=== PATIENT | female | born 1965 | race Caucasian/White ===

== ENCOUNTER 2017-04-12 22:16 | Emergency (ER) | payer OTHER ==
[~2017-04-12] VITALS: Ht 157.5 cm; Wt 67.1 kg
--- OUTSIDE RECORDS SUMMARY | ~2017-04-12 | XMS ---
Demographics + + + | Address | [address] | | | [place] [address] | + + + | Preferred Language | Unknown | + + + | Marital Status | Unknown | + + + | Mandaeism Affiliation | Unknown | + + + | Race | Unknown | + + + | Ethnic Group | Unknown | + + + Author + + + | Author | [facility] | + + + | Organization | [facility] | + + + | Address | [address] | | | [place] [address] | + + + | Phone | | + + + Care Team Providers + + + + | Care Trim Operator Name | Role | Phone | + + + + Unavailable | Unavailable | + + + + PROBLEMS + + + + + + + + | Type | Condition | ICD9-CM | [id number] | Onset | Condition | SNOMED | | | | Code | Code | Dates | Status | Code | + + + + + + + + | Problem | History of | Z87.898 | | | Active | | | | chest | | | | | | | | pain | | | | | | + + + + + + + + | Problem | Hyperlipid | | E78.5 | | Active | 03653276 | | | emia | | | | | | + + + + + + + + | Problem | Hypotensio | | I95.9 | | Active | 82439104 | | | n | | | | | | + + + + + + + + | Assessment | URI (upper | | J06.9 | Dec, | Active | [id number] | | | | | | 2017 | | | | | respirator | | | | | | | | y | | | | | | | | infection) | | | | | | + + + + + + + + | Problem | Internal | K64.8 | | | Active | 48366958 | | | hemorrhoid | | | | | | + + + + + + + + | Problem | Colitis | 009.1 | | | Active | 31831215 | | | NOS | | | | | | + + + + + + + + | Problem | Constipati | K59.01 | | | Active | 79402079 | | | on by | | | | | | | | delayed | | | | | | | | colonic | | | | | | | | transit | | | | | | + + + + + + + + | Problem | Insomnia | | G47.00 | | Active | 085388310 | + + + + + + + + | Problem | Constipati | K59.02 | | | Active | 35624656 | | | on by | | | | | | | | outlet | | | | | | | | dysfunctio | | | | | | | | n | | | | | | + + + + + + + + | Problem | Well woman | Z01.419 | | | Active | 605369465 | | | exam | | | | | | + + + + + + + + | Problem | Screening | Z12.39 | | | Active | 98161621 | | | breast | | | | | | | | examinatio | | | | | | | | n | | | | | | + + + + + + + + | Problem | Palpitatio | | R00.2 | | Active | 89247616 | | | n | | | | | | + + + + + + + + | Problem | Chronic | K59.09 | | | Active | 562412193 | | | constipati | | | | | | | | on | | | | | | + + + + + + + + ALLERGIES + + + + +--------+ | Substance | Reaction | Event Type | Date | Status | + + + + +--------+ | Morphine | Unknown | Drug Allergy | Dec, | Active | + + + + +--------+ SOCIAL HISTORY No smoking Hx information available PLAN OF CARE VITAL SIGNS + + + + | Height | 62 in | 2017-01-24 | + + + + | Weight | 146.2 lbs | 2017-01-24 | + + + + | BMI | 26.74 kg/m2 | 2017-01-24 | + + + + | Temperature | 99.3 degrees Fahrenheit | 2017-01-24 | + + + + | Heart Rate | 109 /min | 2017-01-24 | + + + + | Blood pressure systolic | 124 mm Hg | 2017-01-24 | + + + + | Blood pressure diastolic | 79 mm Hg | 2017-01-24 | + + + + MEDICATIONS + [...] + + + + + +--------+ RESULTS No Results PROCEDURES + + + + + | Procedure | Date Ordered | Related Diagnosis | Body Site | + + + + + | Est Level III | January 24, 2017 | | | | Intermediate | | | | + + + + + | DSCHRG MED/CURRENT | January 24, 2017 | | | | MED MERGE | | | | + + + + + | DOC MEDS VERIFIED | January 24, 2017 | | | | W/PT OR RE | | | | + + + + + IMMUNIZATIONS No Known Immunizations"
--- OUTSIDE RECORDS SUMMARY | ~2017-04-12 | XMS ---
Demographics + + + | Address | [address] | | | [place] [address] | + + + | Preferred Language | Unknown | + + + | Marital Status | Unknown | + + + | Latter-Day Affiliation | Unknown | + + + | Race | Unknown | + + + | Ethnic Group | Unknown | + + + Author + + + | Author | [facility] | + + + | Organization | [facility] | + + + | Address | [address] | | | [place] [address] | + + + | Phone | | + + + Care Team Providers + + + + | Care Steam Engineer Name | Role | Phone | + + + + Unavailable | Unavailable | + + + + PROBLEMS +---------+ + + +--------+ + + | Type | Condition | ICD9-CM | [id number] | Onset | Condition | SNOMED | [...] | | E78.5 | | Active | 85944758 | | | emia | | | | | | +---------+ + + +--------+ + + | Problem | Hypotensio | | I95.9 | | Active | 39669732 | | | n | | | | | | +---------+ + + +--------+ + + | Problem | Internal | K64.8 | | | Active | 63852916 | | | hemorrhoid | | | | | | +---------+ + + +--------+ + + | Problem | Colitis | 009.1 | | | Active | 65563560 | | | NOS | | | | | | +---------+ + + +--------+ + + | Problem | Constipati | K59.01 | | | Active | 68691258 | | | on by | | | | | | | | delayed | | | | | | | | colonic | | | | | | | | transit | | | | | | +---------+ + + +--------+ + + | Problem | Insomnia | | G47.00 | | Active | 086097526 | +---------+ + + +--------+ + + | Problem | Constipati | K59.02 | | | Active | 98638338 | | | on by | | | | | | | | outlet | | | | | | | | dysfunctio | | | | | | | | n | | | | | | +---------+ + + +--------+ + + | Problem | Well woman | Z01.419 | | | Active | [id number] | | | exam | | | | | | +---------+ + + +--------+ + + | Problem | Screening | Z12.39 | | | Active | 04240269 | | | breast | | | | | | | | examinatio | | | | | | | | n | | | | | | +---------+ + + +--------+ + + | Problem | Palpitatio | | R00.2 | | Active | 61294299 | | | n | | | | | | +---------+ + + +--------+ + + | Problem | Chronic | K59.09 | | | Active | 893016879 | | | constipati | | | | | | | | on | | | | | | +---------+ + + +--------+ + + ALLERGIES Unknown Allergies SOCIAL HISTORY No smoking Hx information available PLAN OF CARE VITAL SIGNS MEDICATIONS Unknown Medications RESULTS No Results PROCEDURES No Known procedures IMMUNIZATIONS No Known Immunizations"
[~2017-04-12 22:16] MED LIST: AMITIZA8 MCG PO; ANTACID200 MG PO; BACTRIM DS TAB1 EACH PO; BENTYL10 MG PO; DILAUDID2 MG PO; FAMOTIDINE40 MG PO; FLAGYL500 MG PO; IBUPROFEN800 MG PO; INDOMETHACIN50 MG PO; LINZESS145 MCG PO; PROBIOTIC1 EAC1 PO; PROMETHAZINE HC25 M1 PO; TRAMADOL HCL50 MG PO; TRAZODONE HCL100 MG PO; ULTRAM50 MG PO; ZOFRAN ODT4 MG PO; ZOFRAN ODT4 MG SL; ZOFRAN ODT8 MG PO; ZOFRAN4 MG PO
[2017-04-12] MEDS ORDERED: ZOFRAN ODT4 MG PO (22:23)
[2017-04-12] MEDS ORDERED: IBUPROFEN800 MG PO (22:24)
[2017-04-13] MEDS ORDERED: ZOFRAN ODT4 MG PO (00:34)
[2017-04-13] MEDS ORDERED: TRAMADOL HCL50 MG PO (00:34)
== END 2017-04-13 00:53 | disposition home or self-care (01) ==
LOC: ED 22:16
DX: R10.9 Unspecified abdominal pain (principal); G89.29 Other chronic pain; F17.200 Nicotine dependence, unspecified, uncomplicated; Z90.710 Acquired absence of both cervix and uterus; Z90.49 Acquired absence of other specified parts of digestive tract; Z98.51 Tubal ligation status; Z88.5 Allergy status to narcotic agent; Z79.899 Other long term (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
CPT/HCPCS: 80053; 81001; 83690; 84484; 85025; 85610; 85730; 96361; 96374; 96375; 96376; 99283; J1885; J2405; J2765; J7030

== ENCOUNTER 2017-06-27 16:58 | Emergency (ER) | payer OTHER ==
[~2017-06-27] VITALS: Ht 157.5 cm; Wt 63.5 kg
--- OUTSIDE RECORDS SUMMARY | 2017-06-27 18:37 | XMS ---
Demographics + + + | Address | [address] | | | [place] [address] | + + + | Preferred Language | Unknown | + + + | Marital Status | Unknown | + + + | Church Affiliation | Unknown | + + + | Race | Unknown | + + + | Ethnic Group | Unknown | + + + Author + + + | Author | [facility] | + + + | Organization | [facility] | + + + | Address | [address] | | | [place] [address] | + + + | Phone | | + + + Care Team Providers + + + + | Care Devulcanizer Charger Name | Role | Phone | + + + + Unavailable | Unavailable | + + + + PROBLEMS +---------+ + + +--------+ + + | Type | Condition | ICD9-CM | EUU79-RR | Onset | Condition | SNOMED | | | | Code | Code | Dates | Status | Code | +---------+ + + +--------+ + + | Problem | History of | Z87.898 | | | Active | | | | chest | | | | | | | | pain | | | | | | +---------+ + + +--------+ + + | Problem | Hyperlipid | | E78.5 | | Active | 42147794 | | | emia | | | | | | +---------+ + + +--------+ + + | Problem | Hypotensio | | I95.9 | | Active | 56560425 | | | n | | | | | | +---------+ + + +--------+ + + | Problem | Internal | K64.8 | | | Active | 99223317 | | | hemorrhoid | | | | | | +---------+ + + +--------+ + + | Problem | Colitis | 009.1 | | | Active | 46795834 | | | NOS | | | | | | +---------+ + + +--------+ + + | Problem | Constipati | K59.01 | | | Active | 00867100 | | | on by | | | | | | | | delayed | | | | | | | | colonic | | | | | | | | transit | | | | | | +---------+ + + +--------+ + + | Problem | Insomnia | | G47.00 | | Active | 145729585 | +---------+ + + +--------+ + + | Problem | Constipati | K59.02 | | | Active | 95014089 | | | on by | | | | | | | | outlet | | | | | | | | dysfunctio | | | | | | | | n | | | | | | +---------+ + + +--------+ + + | Problem | Well woman | Z01.419 | | | Active | 389420535 | | | exam | | | | | | +---------+ + + +--------+ + + | Problem | Screening | Z12.39 | | | Active | 86706375 | | | breast | | | | | | | | examinatio | | | | | | | | n | | | | | | +---------+ + + +--------+ + + | Problem | Palpitatio | | R00.2 | | Active | 54558275 | | | n | | | | | | +---------+ + + +--------+ + + | Problem | Chronic | K59.09 | | | Active | 731770841 | | | constipati | | | | | | | | on | | | | | | +---------+ + + +--------+ + + ALLERGIES + + + + +--------+ | Substance | Reaction | Event Type | Date | Status | + + + + +--------+ | Morphine | Unknown | Drug Allergy | Feb, | Active | + + + + +--------+ SOCIAL HISTORY No smoking Hx information available PLAN OF CARE + +---------+ | Activity | Details | + +---------+ +---+ | | +---+ + + + | Follow Up | as scheduled with PCP Reason:null | + + + | Pending Test | Stool-C Difficile Toxin | + + + | Pending Test | Fecal Occult Blood | + + + | Pending Test | Helicobacter pylori Antigen, Stool | + + + | Pending Test | Stool Culture C-S,C Diff, GRE[employer]ER | + + + VITAL SIGNS + + + + | Height | 62 in | 2017-03-27 | + + + + | Weight | 148.2 lbs | 2017-03-27 | + + + + | BMI | 27.10 kg/m2 | 2017-03-27 | + + + + | Temperature | 98.3 degrees Fahrenheit | 2017-03-27 | + + + + | Heart Rate | 85 /min | 2017-03-27 | + + + + | Blood pressure systolic | 119 mm Hg | 2017-03-27 | + + + + | Blood pressure diastolic | 77 mm Hg | 2017-03-27 | + + + + MEDICATIONS + + + + + + + +--------+ | Medicati | Instruct | Dosage | Frequenc | Start | End Date | Duration | Status | | on | ions | | y | Date | | | | + + + + + + + +--------+ | Zofran 4 | Orally | 1 tablet | | | | | Active | | MG | prn | | | | | | | + + + + + + + +--------+ | Linzess | Orally | 1 cap(s) | 24h | 27 Sep, | | | Active | | 145 MG | daily | | | 2016 | | | | + + + + + + + +--------+ RESULTS + +--------+------+ + | Name | Result | Date | Reference Range | + +--------+------+ + | Urinalysis, Dip | | | | | (IH) | | | | + +--------+------+ + | Specific [place] | 1.025 | | | + +--------+------+ + | pH | 5 | | | + +--------+------+ + | Leukocytes | neg | | | + +--------+------+ + | Nitrite, Urine | neg | | | + +--------+------+ + | Protein | neg | | | + +--------+------+ + | Glucose | norm | | | + +--------+------+ + | Ketones | neg | | | + +--------+------+ + | Urobilingen, | norm | | | | Semi-Qn | | | | + +--------+------+ + | Bilirubin | neg | | | + +--------+------+ + | Blood Hemoglobin | neg | | | | (BLD) | | | | + +--------+------+ + | Urinalysis, HCG | | | | | (IH) | | | | + +--------+------+ + | Stool Culture -O&P | | | | + +--------+------+ + | Comprehensive | | | | | Metabolic Panel | | | | + +--------+------+ + | CBC | | | | + +--------+------+ + | WBC | | | | + +--------+------+ + | RBC | | | | + +--------+------+ + | HEMOGLOBIN | | | | + +--------+------+ + | HEMATOCRIT | | | | + +--------+------+ + | MCV | | | | + +--------+------+ + | MCH | | | | + +--------+------+ + | MCHC | | | | + +--------+------+ + | RDW | | | | + +--------+------+ + | LYMPHOCYTES | | | | + +--------+------+ + | NEUTROPHILS | | | | + +--------+------+ + | BANDS | | | | + +--------+------+ + | MONOCYTES | | | | + +--------+------+ + | EOSINOPHILS | | | | + +--------+------+ + | BASOPHILS | | | | + +--------+------+ + | OTHER | | | | + +--------+------+ + | PLATELET COUNT | | | | + +--------+------+ + PROCEDURES + + + + + | Procedure | Date Ordered | Related Diagnosis | Body Site | + + + + + | Est Level III | March 27, 2017 | | | | Intermediate | | | | + + + + + | LAB URINALYSIS (DIP | March 27, 2017 | | | | STICK ONLY | | | | + + + + + IMMUNIZATIONS No Known Immunizations"
--- OUTSIDE RECORDS SUMMARY | 2017-06-27 18:37 | XMS ---
Demographics + + + | Address | [address] | | | [place] [address] | + + + | Preferred Language | Unknown | + + + | Marital Status | Unknown | + + + | Cheondoism Affiliation | Unknown | + + + | Race | Unknown | + + + | Ethnic Group | Unknown | + + + Author + + + | Author | [facility] | + + + | Organization | [facility] | + + + | Address | [address] | | | [place] [address] | + + + | Phone | | + + + Care Team Providers + + + + | Care Veterinary Bacteriologist Name | Role | Phone | + + + + Unavailable | Unavailable | + + + + PROBLEMS +---------+ + + +--------+ + + | Type | Condition | ICD9-CM | EIB13-[id number] | Onset | Condition | SNOMED | | | | Code | Code | Dates | Status | Code | +---------+ + + +--------+ + + | Problem | Hypotensio | | I95.9 | | Active | 91206654 | | | n | | | | | | +---------+ + + +--------+ + + | Problem | Screening | Z12.39 | | | Active | 66766376 | | | breast | | | | | | | | examinatio | | | | | | | | n | | | | | | +---------+ + + +--------+ + + | Problem | Hyperlipid | | E78.5 | | Active | 52393971 | | | emia | | | | | | +---------+ + + +--------+ + + | Problem | Internal | K64.8 | | | Active | 13285461 | | | hemorrhoid | | | | | | +---------+ + + +--------+ + + | Problem | Colitis | 009.1 | | | Active | 82709454 | | | NOS | | | | | | +---------+ + + +--------+ + + | Problem | Constipati | K59.01 | | | Active | 08832085 | | | on by | | [...] + + | Problem | Chronic | K52.9 | | | Active | 77862060 | | | colitis | | | | | | +---------+ + + +--------+ + + | Problem | Insomnia | | G47.00 | | Active | 197915271 | +---------+ + + +--------+ + + | Problem | Chronic | K59.09 | | | Active | 738559052 | | | constipati | | | | | | | | on | | | | | | +---------+ + + +--------+ + + | Problem | Well woman | Z01.419 | | | Active | 765064927 | | | exam | | | | | | +---------+ + + +--------+ + + | Problem | Constipati | K59.02 | | | Active | 26129442 | | | on by | | | | | | | | outlet | | | | | | | | dysfunctio | | | | | | | | n | | | | | | +---------+ + + +--------+ + + | Problem | Palpitatio | | R00.2 | | Active | 18292331 | | | n | | | | | | +---------+ + + +--------+ + + ALLERGIES No Information SOCIAL HISTORY Never Assessed PLAN OF CARE VITAL SIGNS MEDICATIONS Unknown Medications RESULTS No Results PROCEDURES No Known procedures IMMUNIZATIONS No Known Immunizations MEDICAL (GENERAL) HISTORY + + + + | Type | Description | Date | + + + + | Medical History | Colitis 05/25/11 | | + + + + | Medical History | | | + + + + | Medical History | Constipation | | + + + + | Medical History | 7-day Holter monitor done | | | | on 02/23/16--Sinus | | | | Arrhythmia. NO PACs or | | | | PVCs. Highest rate was 158 | | | | which "could have been from | | | | activity". | | + + + + | Surgical History | Hysterectomy with BSO | 2002 | | | secondary to cervical | | | | cancer | | + + + + | Surgical History | Tonsillectomy | | + + + + | Surgical History | Tubal ligation | | + + + + | Surgical History | Cholecystectomy Dr Guerrero | 2009 | + + + + | Surgical History | Laperotomy and lysis of | 05/05/11 | | | adhesions Dr Masoner | | + + + + | Surgical History | Appendectomy | 05/05/11 | + + + + | Hospitalization History | surgery | | + + + + | Hospitalization History | childbirth x 3 | | + + + + | Hospitalization History | [facility] s/p laparotomy | 05/05/11 | + + + + | Hospitalization History | [facility] dx: colitis | 05/25-27/08 | + + + + | Hospitalization History | colonoscopy Dr Tena | 2006 | + + + + | Hospitalization History | [facility] dx: colitis | 05/25-05/27/11 | + + + +
== END 2017-06-27 20:01 | disposition left against medical advice (07) ==
LOC: ED 16:58
DX: Z53.21 Procedure and treatment not carried out due to patient leaving prior to being seen by health care provider (principal)

== ENCOUNTER 2017-09-02 13:05 | Emergency (ER) | payer OTHER ==
[~2017-09-02] VITALS: Ht 157.5 cm; Wt 63.5 kg
[2017-09-02] MEDS ORDERED: DICYCLOMINE HCL10 MG PO (13:24)
[2017-09-02] MEDS ORDERED: ULTRAM50 MG PO (13:25)
[2017-09-02] MEDS ORDERED: IBUPROFEN800 MG PO (13:26)
[2017-09-02] MEDS ORDERED: ZOFRAN ODT4 MG PO (13:32)
[2017-09-02] MEDS ORDERED: REGLAN10 MG PO (16:40)
--- NOTE | 2017-09-03 07:18 | EKG ---
[facility] [address] [facility] [place], [place] [address] Signed Normal sinus rhythm Normal ECG When compared with ECG of 01-JUN-2016 19:07, No significant change was found Confirmed by LYDIA QUIÑONEZ MD ([id number]) on 09/03/2017 7:17:58 AM Electronically Signed By: LYDIA QUIÑONEZ MD 09/03/17 0718 PATIENT NAME: TITI TANNER JAMES Electrocardiogram DATE OF : 69 PHYSICIAN: LYDIA QUIÑONEZ MD REPORT #: [id number] REPORT IS CONFIDENTIAL AND NOT TO BE RELEASED WITHOUT AUTHORIZATION
== END 2017-09-02 16:58 | disposition home or self-care (01) ==
LOC: ED 13:05
DX: R10.84 Generalized abdominal pain (principal); R07.89 Other chest pain; R11.10 Vomiting, unspecified; F17.200 Nicotine dependence, unspecified, uncomplicated; Z90.49 Acquired absence of other specified parts of digestive tract; Z90.710 Acquired absence of both cervix and uterus; Z98.51 Tubal ligation status; Z88.5 Allergy status to narcotic agent; Z85.42 Personal history 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us
CPT/HCPCS: 71020; 80053; 83690; 84484; 85025; 93005; 93010; 96374; 96375; 96376; 99284; J1630; J1885; J2405

== ENCOUNTER 2018-08-04 15:56 | Emergency (ER) | payer OTHER ==
[~2018-08-04] VITALS: Ht 157.5 cm; Wt 59.0 kg
[~2018-08-04 15:56] MED LIST changes: +DICYCLOMINE HCL10 MG PO; +PROTONIX40 MG PO; +REGLAN10 MG PO
--- OUTSIDE RECORDS SUMMARY | 2018-08-04 16:00 | XMS ---
PreManage Notification: TITI TANNER Security Sales Training Coordinator Events 1 event(s) in the past 18 months Most recent security events: Elopement at [facility] 06/27/2017 16:59 - Patient eloped before treatment completed. Details: [facility]BS CRITERIA MET - Group Notification - [facility] - 2 Visits in 30 Days CARE PROVIDERS Gasper Alonzo Treatment [facility] PHONE: Unknown ALEJANDRA MENA Primary Care 10/30/2016-Current PHONE: [phone] Rodriguez has no Care Guidelines for this patient. [facility] (12 MO.) [facility] TOTAL 4 NOTE: Visits indicate total known visits. ED/UCC VISIT TRACKING (12 MO.) 08/04/2018 15:56 [facility] [place] TYPE: Emergency COMPLAINT: - VOMITING BLOOD,SOB 07/13/2018 18:59 [facility] [place] TYPE: Emergency COMPLAINT: - ABD PAIN/VOMITING DIAGNOSES: - Nausea with vomiting, unspecified - Allergy status to narcotic agent status - Nicotine dependence, unspecified, uncomplicated - Other group home (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 - Functional dyspepsia 12/15/2017 06:53 [facility] TYPE: Emergency DIAGNOSES: - Chest Pain - Palpitations - CP 09/02/2017 13:05 [facility] TYPE: Emergency COMPLAINT: - ABD CHEST PAIN,NON INJURY DIAGNOSES: - Allergy status to narcotic agent status - Generalized abdominal pain - Acquired absence of other specified parts of digestive tract - 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us - Tubal ligation status - Acquired absence of both cervix and uterus - Other chest pain - Nicotine dependence, unspecified, uncomplicated - Epigastric pain - Vomiting, unspecified INPATIENT VISIT TRACKING (12 MO.) No inpatient visits to display in this time frame [id number]
== END 2018-08-04 19:26 | disposition home or self-care (01) ==
LOC: ED 15:56
DX: E86.0 Dehydration (principal); R11.10 Vomiting, unspecified; F17.200 Nicotine dependence, unspecified, uncomplicated; Z88.5 Allergy status to narcotic agent; Z79.899 Other long term (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
CPT/HCPCS: 80053; 81001; 85025; 96361; 96374; 96375; 99284; C9113; J1170; J1200; J2405; J2765; J7030; J7040

== ENCOUNTER 2018-10-27 15:55 | Emergency (ER) | payer OTHER ==
[~2018-10-27] VITALS: Ht 157.5 cm; Wt 59.0 kg
--- OUTSIDE RECORDS SUMMARY | 2018-10-27 15:58 | XMS ---
PreManage Notification: TITI TANNER Security Loans Officer Events 1 event(s) in the past 18 months Most recent security events: Elopement at [facility] 06/27/2017 16:59 - Patient eloped before treatment completed. Details: [facility] CRITERIA MET - Group Notification CARE PROVIDERS ALEJANDRA MENA Nurse Practitioner: Family 08/05/2018-Current PHONE: Unknown Gasper Alonzo MD PHONE: Unknown ALEJANDRA MENA Primary Care 10/30/2016-Current PHONE: [phone] Rodriguez has no Care Guidelines for this patient. Care History Medical/Surgical 08/05/2018 [facility] - Patient is currently established with [facility]. If patient is seen in the ED during business hours. Please contact CHWs at [facility]. Care Recommendation: This patient has had 5 or more Emergency Department visits in the last 12 months.\T\nbsp; Patient requires education on the scope and purpose of the ED as an acute care provider not a Primary Care Provider and should not be utilized for chronic conditions.\T\nbsp; These are guidelines and the provider should exercise clinical judgment when providing care. E.D. VISIT COUNT (12 MO.) 1 [facility] [address] [place], [place] [address]Sun TOTAL 5 NOTE: Visits indicate total known visits. ED/UCC VISIT TRACKING (12 MO.) 10/27/2018 15:[address] [facility] [place] TYPE: Emergency COMPLAINT: - CHEST PAIN,VOMITING 08/16/2018 18:13 [facility] [place] TYPE: Emergency COMPLAINT: - NAUSEA,VOMITING DIAGNOSES: - Nausea with vomiting, unspecified - Epigastric pain - Other director long term care (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 - Allergy status to narcotic agent status - Nicotine dependence, unspecified, uncomplicated 08/04/2018 15:[address] [facility] [place] TYPE: Emergency COMPLAINT: - VOMITING BLOOD,SOB DIAGNOSES: - Nicotine dependence, unspecified, uncomplicated - Dehydration - Vomiting, unspecified - Upper abdominal pain, unspecified - Allergy status to narcotic agent status - Other director long term care (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 07/13/2018 18:[address] [facility] [place] TYPE: Emergency COMPLAINT: - ABD PAIN/VOMITING DIAGNOSES: - Nausea with vomiting, unspecified - Allergy status to narcotic agent status - Nicotine dependence, unspecified, uncomplicated - Other penitentiary (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 - Functional dyspepsia 12/15/2017 06:[address] [facility] TYPE: Emergency DIAGNOSES: - Chest Pain - Palpitations - CP INPATIENT VISIT TRACKING (12 MO.) No inpatient visits to display in this time frame [email or web address]
[2018-10-27] MEDS ORDERED: PROTONIX40 MG PO (17:58)
--- NOTE | 2018-10-28 08:10 | EKG ---
[facility] [address] [facility] [place], [place] [address] Signed Normal sinus rhythm Normal ECG When compared with ECG of 13-JUL-2018 20:38, No significant change was found Confirmed by LYDIA QUIÑONEZ MD ([id number]) on 10/28/2018 8:09:56 AM Electronically Signed By: LYDIA QUIÑONEZ MD 10/28/18 0810 PATIENT NAME: CIROTITI JAMES Electrocardiogram DATE OF : 69 PHYSICIAN: LYDIA QUIÑONEZ MD REPORT #: [id number] REPORT IS CONFIDENTIAL AND NOT TO BE RELEASED WITHOUT AUTHORIZATION
== END 2018-10-27 18:03 | disposition home or self-care (01) ==
LOC: ED 15:55
DX: R10.13 Epigastric pain (principal); R11.2 Nausea with vomiting, unspecified; F17.200 Nicotine dependence, unspecified, uncomplicated; Z88.5 Allergy status to narcotic agent; Z85.42 Personal history 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us
CPT/HCPCS: 93005; 93010; 99284-25

== ENCOUNTER 2018-11-12 18:11 | Emergency (ER) | payer OTHER ==
[~2018-11-12] VITALS: Ht 157.5 cm; Wt 57.6 kg
--- OUTSIDE RECORDS SUMMARY | 2018-11-12 18:14 | XMS ---
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 Details: LWBS CRITERIA MET - Group Notification - [facility] - Has Care Guidelines - PDMP - [facility] - 2 Visits in 30 Days CARE PROVIDERS ALEJANDRA MENA Nurse Practitioner: Family 08/05/2018-Current PHONE: Unknown Gasper Alonzo Treatment Current PHONE: Unknown ALEJANDRA MENA Primary Care 10/30/2016-Current PHONE: [phone] Rodriguez has no Care Guidelines for this patient. Care History Medical/Surgical 08/05/2018 [facility] - Patient is currently established with [facility]. If patient is seen in the ED during business hours. Please contact CHWs at [facility]. Care Recommendation: This patient has had 5 [...] care. E.D. VISIT COUNT (12 MO.) 1 [facility] 5 [facility]. TOTAL 6 NOTE: Visits indicate total known visits. ED/UCC VISIT TRACKING (12 MO.) 11/12/2018 18:[address] [facility] [address] [facility] [place] TYPE: Emergency COMPLAINT: - VOMITING,RASH 10/27/2018 15:[address] [facility] [address] [facility] [place] TYPE: Emergency COMPLAINT: - CHEST PAIN,VOMITING DIAGNOSES: - 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us - Allergy status to narcotic agent status - Epigastric pain - Nicotine dependence, unspecified, uncomplicated - Nausea with vomiting, unspecified 08/16/2018 18:[address] [facility] [address] [facility] [place] TYPE: Emergency COMPLAINT: - NAUSEA,VOMITING DIAGNOSES: - Nausea with vomiting, unspecified - Epigastric pain - Other certified activities director (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 - Allergy status to narcotic agent status - Nicotine dependence, unspecified, uncomplicated 08/04/2018 15:[address] [facility] [address] [facility] [place] TYPE: Emergency COMPLAINT: - VOMITING BLOOD,SOB DIAGNOSES: - Nicotine dependence, unspecified, uncomplicated - Dehydration - Vomiting, unspecified - Upper abdominal pain, unspecified - Allergy status to narcotic agent status - Other certified activities director (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 [facility]2018 [facility] [place] [facility] COMPLAINT: - ABD PAIN/VOMITING DIAGNOSES: - Nausea with vomiting, unspecified - Allergy status to narcotic agent status - Nicotine dependence, unspecified, uncomplicated - Other certified activities director (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 - Functional dyspepsia 12/15/2017 06:53 [facility] TYPE: Emergency DIAGNOSES: - Chest Pain - Palpitations - CP INPATIENT VISIT TRACKING (12 MO.) No inpatient visits to display in this time frame [id number]
[2018-11-12] MEDS ORDERED: PANTOPRAZOLE SO40 MG PO (18:29)
[2018-11-12] MEDS ORDERED: ONDANSETRON ODT8 MG PO (18:30)
--- NOTE | 2018-11-13 16:59 | EKG ---
[facility] [address] [facility] [place], [place] [address] Signed Normal sinus rhythm Normal ECG When compared with ECG of 27-OCT-2018 16:09, No significant change was found Confirmed by PATIENCE SELF DO ([id number]) on 11/13/2018 4:59:36 PM Electronically Signed By: PATIENCE SELF DO 11/13/18 1659 PATIENT NAME: CIROTITI JAMES Electrocardiogram DATE OF : 69 PHYSICIAN: PATIENCE SELF DO REPORT #: [id number] REPORT IS CONFIDENTIAL AND NOT TO BE RELEASED WITHOUT AUTHORIZATION
== END 2018-11-12 21:07 | disposition home or self-care (01) ==
LOC: ED 18:11
DX: R11.2 Nausea with vomiting, unspecified (principal); Z85.42 Personal history 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us; F17.200 Nicotine dependence, unspecified, uncomplicated; Z90.710 Acquired absence of both cervix and uterus; Z90.49 Acquired absence of other specified parts of digestive tract; Z88.5 Allergy status to narcotic agent; Z79.899 Other long term (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
CPT/HCPCS: 80053; 83690; 85025; 93005; 93010; 96361; 96374; 96375; 99285-25; C9113; J1200; J2405; J2765; J7030

== ENCOUNTER 2019-07-14 13:34 | Emergency (ER) | payer OTHER ==
[~2019-07-14] VITALS: Ht 157.5 cm; Wt 57.6 kg
[~2019-07-14 13:34] MED LIST changes: +ONDANSETRON ODT8 MG PO; +PANTOPRAZOLE SO40 MG PO
--- OUTSIDE RECORDS SUMMARY | 2019-07-14 13:38 | XMS ---
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 - Has Care Guidelines CARE PROVIDERS ALEJANDRA MENA Nurse Practitioner: Family 08/05/2018-Current PHONE: Unknown Gasper Alonzo Current [place] PHONE: Unknown ALEJANDRA MENA Primary Care 10/30/2016-Current PHONE: [phone] Rodriguez has no Care Guidelines for this patient. Care History Medical/Surgical 08/05/2018 [facility] - Patient is currently established with [facility]. If patient is seen in the ED during business hours. Please contact CHWs at [facility]. Care Recommendation: This patient has had 5 [...] providing care. E.D. VISIT COUNT (12 MO.) [address] [facility] TOTAL 5 NOTE: Visits indicate total known visits. ED/UCC VISIT TRACKING (12 MO.) 07/14/2019 13:36 [facility] [place] TYPE: Emergency COMPLAINT: - ABD AND BACK PAIN, VOMITING AND DIARRHEA 11/12/2018 18:12 [facility] [place] TYPE: Emergency COMPLAINT: - VOMITING,RASH DIAGNOSES: - Nicotine dependence, unspecified, uncomplicated - Acquired absence of other specified parts of digestive tract - Allergy status to narcotic agent status - Nausea with vomiting, unspecified - Other assisted (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 - Acquired absence of both cervix and uterus - Personal history of malignant neoplasm of oth prt uterus - Epigastric pain 10/27/2018 15:56 [facility] [place] TYPE: Emergency COMPLAINT: - CHEST PAIN,VOMITING DIAGNOSES: - Personal history of malignant neoplasm of oth prt uterus - Allergy status to narcotic agent status - Epigastric pain - Nicotine dependence, unspecified, uncomplicated - Nausea with vomiting, unspecified 08/16/2018 18:13 [facility] [place] TYPE: Emergency COMPLAINT: - NAUSEA,VOMITING DIAGNOSES: - Nausea with vomiting, unspecified - Epigastric pain - 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 [place] TYPE: Emergency COMPLAINT: - VOMITING BLOOD,SOB DIAGNOSES: - Nicotine dependence, unspecified, uncomplicated - Dehydration - Vomiting, unspecified - Upper abdominal pain, unspecified - Allergy status to narcotic agent status - Other assisted (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 INPATIENT VISIT TRACKING (12 MO.) No inpatient visits to display in this time frame [id number]
[2019-07-14] MEDS ORDERED: PROMETHAZINE HC25 M1 PO (17:15)
[2019-07-14] MEDS ORDERED: ZOFRAN4 MG PO (17:15)
== END 2019-07-14 17:27 | disposition home or self-care (01) ==
LOC: ED 13:34
DX: R10.9 Unspecified abdominal pain (principal); R19.7 Diarrhea, unspecified; R11.10 Vomiting, unspecified; F17.200 Nicotine dependence, unspecified, uncomplicated; Z85.42 Personal history 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us; Z88.5 Allergy status to narcotic agent
CPT/HCPCS: 74177; 80053; 81001; 83690; 83735; 85025; 99284-25; J1170; J2405; J2550; J7030; Q9967

== ENCOUNTER 2019-07-28 08:26 | Emergency (ER) | payer OTHER ==
[~2019-07-28] VITALS: Ht 157.5 cm; Wt 57.6 kg
--- OUTSIDE RECORDS SUMMARY | 2019-07-28 08:28 | XMS ---
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 Care History Medical/Surgical 08/05/2018 [facility] - Patient is currently established with [facility]. If patient is seen in the ED during business hours. Please contact CHWs at [facility]. Care Recommendation: This patient has had [...] providing care. E.D. VISIT COUNT (12 MO.) 6 [facility] TOTAL 6 NOTE: Visits indicate total known visits. ED/UCC VISIT TRACKING (12 MO.) 07/28/2019 08:26 [facility] [place] TYPE: Emergency COMPLAINT: - VOMITING, CHEST PAIN 07/14/2019 13:36 [facility] [place] TYPE: Emergency COMPLAINT: - ABD AND BACK PAIN, VOMITING AND DIARRHEA DIAGNOSES: - Allergy status to narcotic agent status - Vomiting, unspecified - Nicotine dependence, unspecified, uncomplicated - Personal history of malignant neoplasm of oth prt uterus - Diarrhea, unspecified - Unspecified abdominal pain 11/12/2018 18:12 [facility] [place] TYPE: Emergency COMPLAINT: - VOMITING,RASH DIAGNOSES: - Nicotine dependence, unspecified, uncomplicated - Acquired absence of other specified parts of digestive tract - Allergy status to narcotic agent status - Nausea with vomiting, unspecified - Other 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 coordinator (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 - Acquired absence of [...] vomiting, unspecified - Epigastric pain - Other usp (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 - Allergy status to narcotic agent status - Nicotine dependence, unspecified, uncomplicated 08/04/2018 15:56 [facility] [place] TYPE: Emergency COMPLAINT: - VOMITING BLOOD,SOB DIAGNOSES: - Nicotine dependence, unspecified, uncomplicated - Dehydration - Vomiting, unspecified - Upper abdominal pain, unspecified - Allergy status to narcotic agent status - Other 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 coordinator (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 INPATIENT VISIT TRACKING (12 MO.) No inpatient visits to display in this time frame [id number]
[2019-07-28] MEDS ORDERED: GAVISCON LIQUI355 ML PO (08:40)
[2019-07-28] MEDS ORDERED: REGLAN10 MG PO (10:15)
[2019-07-28] MEDS ORDERED: ONDANSETRON ODT8 MG PO (10:15)
--- NOTE | 2019-07-28 17:46 | EKG ---
[facility] [address] [place], [place] [address] Signed Sinus tachycardia Otherwise normal ECG When compared with ECG of 12-NOV-2018 18:26, No significant change was found Confirmed by BENJIE SOARES MD ([id number]) on 07/28/2019 5:46:41 PM Electronically Signed By: BENJIE SOARES MD 07/28/19 1746 PATIENT NAME: TITI TANNER Electrocardiogram DATE OF : 69 PHYSICIAN: BENJIE SOARES MD REPORT #: [id number] REPORT IS CONFIDENTIAL AND NOT TO BE RELEASED WITHOUT AUTHORIZATION
== END 2019-07-28 10:26 | disposition home or self-care (01) ==
LOC: ED 08:26
DX: K29.00 Acute gastritis without bleeding (principal); F17.200 Nicotine dependence, unspecified, uncomplicated; Z88.5 Allergy status to narcotic agent; Z79.899 Other long term (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
CPT/HCPCS: 80053; 83690; 84484; 85025; 93005; 93010; 96361; 96374; 96375; 99285-25; C9113; J1170; J2405; J2765; J7030

== ENCOUNTER 2019-08-08 16:00 | Emergency (ER) | payer OTHER ==
[~2019-08-08] VITALS: Ht 157.5 cm; Wt 58.1 kg
[~2019-08-08 16:00] MED LIST changes: +GAVISCON LIQUI355 ML PO
--- OUTSIDE RECORDS SUMMARY | 2019-08-08 16:02 | XMS ---
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 Care History Medical/Surgical 08/02/2019 [facility] Patient has appt with ARNIE Amos 08/17/2019 at 5:40pm . 08/05/2018 [facility] - Patient is currently established with [facility]. If patient is seen in the ED during business hours. Please contact CHWs at [facility]. Care Recommendation: This patient has [...] care. E.D. VISIT COUNT (12 MO.) 6 [facility]. TOTAL 6 NOTE: Visits indicate total known visits. ED/UCC VISIT TRACKING (12 MO.) 08/08/2019 16:01 [facility] [place] TYPE: Emergency COMPLAINT: - ABD PAIN/VOMITTING 07/28/2019 08:[address] 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 [place] TYPE: Emergency COMPLAINT: - ABD AND BACK PAIN, VOMITING AND DIARRHEA DIAGNOSES: - Allergy status to narcotic agent status - Vomiting, unspecified - Nicotine dependence, unspecified, uncomplicated - Personal history of malignant neoplasm of oth prt uterus - Diarrhea, unspecified - Unspecified abdominal pain 11/12/2018 18:[address] 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
== END 2019-08-08 17:07 | disposition left against medical advice (07) ==
LOC: ED 16:00
DX: R10.31 Right lower quadrant pain (principal); R10.32 Left lower quadrant pain; F17.200 Nicotine dependence, unspecified, uncomplicated; Z88.5 Allergy status to narcotic agent; Z88.8 Allergy status to other drugs, medicaments and biological substances; Z79.899 Other long term (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; Z85.42 Personal history 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us
CPT/HCPCS: 80053; 83690; 85025; 96374; 99284-25; J2765; J7030

== ENCOUNTER → 2020-06-14 | Emergency (ER) | payer OTHER ==
[~2020-06-14] VITALS: Ht 157.5 cm; Wt 58.1 kg
[~2020-06-14] MED LIST changes: +CARAFATE1 GM PO
--- OUTSIDE RECORDS SUMMARY | 2020-06-14 13:24 | XMS ---
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 CRITERIA MET - Group Notification - [facility] - Has Care Guidelines CARE PROVIDERS ALEJANDRA MENA Nurse Practitioner: Family 08/05/2018-Current PHONE: [phone] Rodriguez has no Care Guidelines for this patient. Care History Medical/Surgical 08/02/2019 [facility] Patient has appt with ARNIE Amos 08/17/2019 at 5:40pm . 08/05/2018 [facility] - Patient is currently established with [facility]. If patient is seen in the ED during business hours. Please contact CHWs at [facility]. Care Recommendation: This patient has had [...] care. E.D. VISIT COUNT (12 MO.) 1 [facility] 4 [facility] [place] TOTAL 5 NOTE: Visits indicate total known visits. ED/UCC VISIT TRACKING (12 MO.) 06/14/2020 13:21 [facility] [place] TYPE: Emergency COMPLAINT: - ABDOMINAL PAIN [facility] DIAGNOSES: - Unspecified fall, initial encounter - Fall - Constipation - fall/left side pain - Contusion of left front wall of thorax, initial encounter - Rib Pain - Slow transit constipation 08/08/2019 16:01 [facility] [place] TYPE: Emergency COMPLAINT: - ABD PAIN/VOMITTING DIAGNOSES: - Nicotine dependence, unspecified, uncomplicated - Left lower quadrant pain - Allergy status to narcotic agent status - Other senior care (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 - Allergy status to other drugs, medicaments and biological sub - Right lower quadrant pain - 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 07/28/2019 08:26 [facility] [place] TYPE: Emergency COMPLAINT: - VOMITING, CHEST PAIN DIAGNOSES: - 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 - Allergy status to narcotic agent status - Nausea with vomiting, unspecified - Nicotine dependence, unspecified, uncomplicated - Acute gastritis without bleeding 07/14/2019 13:36 [facility] [place] TYPE: Emergency COMPLAINT: - ABD AND BACK PAIN, VOMITING AND DIARRHEA DIAGNOSES: - Allergy status to narcotic agent status - Vomiting, unspecified - Nicotine dependence, unspecified, uncomplicated - 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 - Diarrhea, unspecified - Unspecified abdominal pain INPATIENT VISIT TRACKING (12 MO.) No inpatient visits to display in this time frame [id number]
== END ==
LOC: ED 13:20
DX: K27.9 Peptic ulcer, site unspecified, unspecified as acute or chronic, without hemorrhage or perforation (principal); F17.200 Nicotine dependence, unspecified, uncomplicated; Z88.8 Allergy status to other drugs, medicaments and biological substances; Z88.5 Allergy status to narcotic agent; Z79.899 Other long term (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
CPT/HCPCS: 80053; 83690; 85025; 96374; 96375; 99284-25; C9113; J2405

== ENCOUNTER 2020-07-08 14:21 | Inpatient (IN) | payer OTHER ==
[~2020-07-08] VITALS: Ht 157.5 cm; Wt 57.6 kg
--- OUTSIDE RECORDS SUMMARY | 2020-07-08 14:24 | XMS ---
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 CRITERIA MET - Group Notification - [facility] - Has Care Guidelines - [facility] - 2 Visits in 30 Days CARE PROVIDERS RUSS MENA Nurse Practitioner: Family 08/05/2018-Current PHONE: [phone] Rodriguez has no Care Guidelines for this patient. Care History Medical/Surgical 06/16/2020 [facility] Spoke with patient about using Clinic instead of ED.\T\nbsp; Patient understood.\T\nbsp; Patient stated that doctors keep referring to her pain as gastritis or ulcer, but she stated that her pain is in her chest and nobody here is listening to her.\T\nbsp; I advised to establish care with a new PCP as Russ Mena will no longer be available, and to request a referral for a specialist.\T\nbsp; Patient agreed. 08/05/2018 [facility] - Patient is currently established with [facility]. If patient is seen in the ED during business hours. Please contact CHWs at [facility]. Care Recommendation: If this patient has had 5 or more Emergency Department visits in the last 12 months.\T\nbsp; Patient will require education on the scope and purpose of the ED as an acute care provider not a Primary Care Provider and should not be utilized for chronic conditions.\T\nbsp; These are guidelines and the provider should exercise clinical judgment when providing care. [facility] TOTAL 6 NOTE: Visits indicate total known visits. ED/UCC VISIT TRACKING (12 MO.) 07/08/2020 14:21 [facility] [place] TYPE: Emergency COMPLAINT: - RECTAL BLEEDING, ABD PAIN 06/14/2020 13:21 [facility] [place] TYPE: Emergency COMPLAINT: - ABDOMINAL PAIN DIAGNOSES: - Nicotine dependence, unspecified, uncomplicated - Peptic ulcer, site unspecified, unspecified as acute or chron - Allergy status to other drugs, medicaments and biological sub - Epigastric pain - Other half-way (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 - Allergy status to narcotic agent status [facility]2019 [facility] DIAGNOSES: - Unspecified fall, initial encounter - Fall - Constipation - fall/left side pain - Contusion of left front wall of thorax, initial encounter - Rib Pain - Slow transit constipation 08/08/2019 16:01 [facility] [place] TYPE: Emergency COMPLAINT: - ABD PAIN/VOMITTING DIAGNOSES: - Nicotine dependence, unspecified, uncomplicated - Left lower quadrant pain - Allergy status to narcotic agent status - Other half-way (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 - Allergy status to other drugs, medicaments and biological sub - Right lower quadrant pain - 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 07/28/2019 08:26 [facility] [place] TYPE: Emergency COMPLAINT: - VOMITING, CHEST PAIN DIAGNOSES: - Other 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
--- NOTE | 2020-07-08 18:30 | NUR ---
this rn received report from charley in the er.
--- NOTE | 2020-07-08 19:00 | NUR ---
pt declined the desire to have nicotine replacement at this time. pt states her pain is 5/10 which she states is tolerable
--- NOTE | 2020-07-08 20:15 | NUR ---
REPORT RECEIEVED FROM SHIRA FRANKLIN. PT IN BED, RESTING WITH EYES CLOSED AND RESP EVEN AND UNLABORED.
--- NOTE | 2020-07-08 21:15 | NUR ---
IN TO DO VS, ASSESSMENT AND HS MEDS. PT IS SLEEPING BUT AWAKENS EASILY. DENIES NAUSEA, C/O SLIGHT ABD PAIN STATES "ITS OKAY NOT TOO BAD". UP TO VOID AND THEN BACK TO BED. IVF INFUSING, PT UPDATED REGARDING DIET AND OFFERED CLEAR LIQUIDS, SHE REQUESTS SOME WATER. WATER AND WARM BLANKET GIVEN AND PT BACK TO TRY TO SLEEP MORE. BP SLIGHTLY LOW, WILL MONITOR.
--- NOTE | 2020-07-09 00:28 | NUR ---
UPDATED MD ON BP'S AND URINE OUTPUT. ORDER GIVEN FOR 500ML LR IV BOLUS AND TO INCREASE IVF TO 150ML/HR.
--- NOTE | 2020-07-09 00:37 | NUR ---
LR BOLUS STARTED, PT INFORMED. DENIES NEEDS AT THIS TIME
--- NOTE | 2020-07-09 01:35 | NUR ---
BOLUS COMPLETED, BP RECHECKED IS 103/71 MAP 62. PT AWAKE, DENIES NEEDS.
--- NOTE | 2020-07-09 05:19 | NUR ---
UP TO VOID 100ML KATHY URINE. PT STEADY ON FEET, STATES SHE IS NOT DIZZY OR LIGHTHEADED. DENIES NEED FOR PAIN MEDS FOR ABD PAIN AT THIS TIME. NO REQUESTS, REMINDED OF NPO SATUS.
--- NOTE | 2020-07-09 07:47 | NUR ---
THIS RN RECEIVED REPORT FROM ARABELLA FRANKLIN. PT SITTING UP IN BED AND STATES THAT SHE IS FEELING MUCH BETTER THIS AM. PT APPEARS TO BE FEELING BETTER TO THIS RN WHO ADMITTED HER LAST NIGHT
--- NOTE | 2020-07-09 09:11 | NUR ---
VERBALIZED WANTING TO CONTIUE C.DIFF ORDER AT THIS TIME, ALTHOUGH SHE HAS NOT HAD BM SINCE ADMIT. CONSULTING POSSIBLE SCOPE.
--- NOTE | 2020-07-09 10:11 | NUR ---
THIS RN IN PTS ROOM TO GET PTS VITALS. PT SITTING UP IN BED WITH TV ON AND CALL LIGHT WITHIN REACH. THIS RN DISCUSSED WITH PT THAT MD WILL BE IN SHORTLY TO SEE HER PT DENIED PAIN OR NAUSEA AT THIS TIME
--- NOTE | 2020-07-09 12:16 | NUR ---
07/09/20 1216 Mccracken,Keyla Judge 1210: O2 MASK REMOVED. PATIENT ON ROOM AIR.
--- NOTE | 2020-07-09 12:21 | CONS ---
[facility] [address] [place], [place] [address] Signed DATE OF CONSULTATION: 07/09/2020 CHIEF COMPLAINT: Rectal bleeding. HISTORY OF PRESENT ILLNESS: Avani is a 55-year-old female, who as far back as 2010 was diagnosed with concerns of ulcerative colitis. She had a colonoscopy in 2011 with colitis of unspecified nature. She goes to episodes of constipation and diarrhea, and then could have generalized abdominal pain and rectal bleeding. She has been to her food counselor as well as [facility] for endoscopy. No additional episodes of colitis have been documented as above. She might have colonic inertia. She also has a previous history of uterine cancer. More recently, she has gone through another episode of nausea, vomiting, diarrhea, and rectal bleeding. She said she goes to these quite frequently. She came to the emergency room for evaluation because she was getting dehydrated. Last night, white count was 11.6, but with hydration, it down to 6.1. Her liver function tests were fine, albumin was 3.2, and sed rate was only 2, although the urine specific gravity and ketones were elevated. Albumin is low at 2.7. Of course, her stool studies are pending. A CT scan of the abdomen and pelvis yesterday showed pancolitis. She had been admitted to the Internal Medicine Service. She was started on Flagyl and a single dose of Solu-Medrol. She said she feels much better this morning. I have been asked to see her as a general surgeon on-call for limited colonoscopy for photodocumentation and biopsies. PAST MEDICAL HISTORY: Possible ulcerative colitis in as well as colonic inertia, uterine cancer, and internal hemorrhoids. PAST SURGICAL HISTORY: Includes her laparoscopic bilateral tubal ligation, open hysterectomy, cholecystectomy in 2009 and appendectomy in 2010, a colonoscopy in [address] Jefferson as well as colonoscopy subsequently with Dr. Blaze Horn and [facility]. SOCIAL HISTORY: She does not smoke or drink. She is with three children. 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 She prefers the [facility]. Carmenza Moffett is her mother, . Russ Mena is her primary care provider. Dr. Blaze Horn was her food counselor in [place], [place] as well as [facility]. FAMILY HISTORY: Her maternal grandmother apparently had coronary artery disease and possibly ulcerative Electronically Signed By: ANANTH JEFFERSON MD 07/09/20 1221 PATIENT NAME: AVANI TANNER CONSULTATION DATE OF : 69 REPORT #: [id number] PHYSICIAN: ANANTH JEFFERSON MD PCP: RUSS MENA REPORT IS CONFIDENTIAL AND NOT TO BE RELEASED WITHOUT AUTHORIZATION [facility] [address] [place] [id number] Signed colitis, her name is Avani Medina. REVIEW OF SYSTEMS: She had 10 systems reviewed and really nothing new other than multiple episodes of abdominal pain and rectal bleeding as well as epigastric abdominal pain after she eats. ALLERGIES: Morphine and Benadryl. MEDICATIONS: None. PHYSICAL EXAMINATION: VITAL SIGNS: Her blood pressure is 101/62, heart rate 68, respiratory rate 14, temperature is 97.6, and she is 97% on room air. She is 5 feet 2 inches, 57 kg. GENERAL: Avani does not appear systemically ill or toxic. She does have the appearance of a smoker. LUNGS: Clear to auscultation bilaterally. HEART: Regular rate and rhythm. ABDOMEN: Soft, flat, mildly and diffusely tender, but no peritoneal signs or symptoms. RECTAL: Not currently repeated. LABORATORY DATA: Her white blood count was 11.6, but it is now 6.1; hemoglobin was 14.0, it is now down to 10.9 with neutrophils 82. Her BUN is 12 and creatinine 0.56. Liver function tests are negative. Albumin is down to 2.7. Her sedimentation rate is 2. Her other stool studies are pending. Urine specific gravity was up at 1.031 with ketones. RADIOGRAPHIC STUDIES: CT scan of the abdomen and pelvis is reviewed, and she clearly has pancolitis. ASSESSMENT AND PLAN: Avani is a 55-year-old female, who presents with pancolitis. Definitive diagnosis has been elusive. She tells me she has never had a Sitzmark test for colonic inertia. At this point, she has been admitted and started on Flagyl and given one dose of Solu-Medrol and IV fluids. She said she is feeling much better already. I reviewed all this with Avani in detail. She understands that inflammatory bowel disease can be elusive to diagnose. We are going to bring our crew in for a limited colonoscopy with photo documentation biopsies. She understands the test quite well. She understands there is risk including, but not limited to gas bloating, crampy abdominal pain, bleeding, perforation requiring surgery, and missed diagnosis. She has expressed understanding and would like to proceed. Electronically Signed By: ANANTH JEFFERSON MD 07/09/20 1221 PATIENT NAME: AVANI TANNER CONSULTATION DATE OF : 69 REPORT #: [id number] PHYSICIAN: ANANTH JEFFERSON MD PCP: RUSS MENA REPORT IS CONFIDENTIAL AND NOT TO BE RELEASED WITHOUT AUTHORIZATION [address] [place], [place] [address] Signed Ananth Jefferson MD [facility]/MODL /[id number] cc: Ananth Jefferson MD Copies: ANANTH JEFFERSON MD ~ Electronically Signed By: ANANTH JEFFERSON MD 07/09/20 1221 PATIENT NAME: AVANI TANNER CONSULTATION DATE OF : 69 REPORT #: [id number] PHYSICIAN: ANANTH JEFFERSON MD PCP: RUSS MENA REPORT IS CONFIDENTIAL AND NOT TO BE RELEASED WITHOUT AUTHORIZATION
--- NOTE | 2020-07-09 13:24 | NUR ---
THIS RN IN TO SEE PT AT THIS TIME. PT STATES THAT SHE THINKS SHE NEEDS TO PEE. THIS RN ASSISSTED PT TO BATHROOM. PT STATES THAT SHE IS HAVING GAS PAIN. THIS RN EDUCATED PT TO WALK AND TRY TO PASS THE GAS TO HELP WITH THAT PAIN.
--- NOTE | 2020-07-09 13:54 | NUR ---
PT CONSUMED ENTIRE FULL LIQUID TRAY, THEN DELEVOPED NAUSEA AND HAD EMESIS. ZOFRAN 4MG IV ADMINISTERED AT THIS TIME.
--- NOTE | 2020-07-09 14:00 | NUR ---
THIS RN IN TO SEE PT AT THIS TIME FOR POST OPP CHECK. PT STATES THAT THE GAS PAIN IS A BIT BETTER AFTER SHE HAD SOME EMESIS.
--- NOTE | 2020-07-09 15:10 | NUR ---
THIS RN IN PTS ROOM TO CHECK ON PT. PT STATES THAT HER PAIN IS A BIT BETTER, SHE IS NOT PASSING GAS BUT FEELS THAT IT IS GETTING BETTER.
--- NOTE | 2020-07-09 19:30 | NUR ---
REPORT RECEIVED FROM SHIRA FRANKLIN. IN TO CHECK ON PT, PT RESTING WITH EYES CLOSED, RESP EVEN AND UNLABORED.
--- NOTE | 2020-07-09 21:25 | NUR ---
IN TO DO ASSESSMENT AND VS. PT DENIES NAUSEA OR ABD PAIN AT THIS TIME, DESCRIBES FEELING SLIGHT "DISCOMFORT" MID ABDOMEN BUT DENIES NEED FOR ANY MEDICATION AT THIS TIME. WANTING TO GO BACK TO SLEEP.
--- NOTE | 2020-07-09 22:01 | OR ---
[facility] [address] [place], [place] [address] Signed DATE OF OPERATION: 07/09/2020 SURGEON: Ananth Jefferson MD PREOPERATIVE DIAGNOSES: 1. Pancolitis. 2. Rectal bleeding. 3. Generalized abdominal pain. POSTOPERATIVE DIAGNOSES: 1. Mild unspecified colitis (viral?). 2. Sszkqlx-dn-krpoiirj internal hemorrhoids. PROCEDURES: Colonoscopy with cold biopsies of the hepatic flexure, proximal transverse colon, mid transverse colon, splenic flexure, 40 cm, 30 cm, 25 cm, 20 cm, 15 cm, 10 cm, and 5 cm. ESTIMATED BLOOD LOSS: Minimal. FINDINGS: Avani had no blood in the colon, whatsoever. No mucosal changes consistent with ulcerative colitis, but the mucosa was a little boggy and injected, more consistent with a viral type of colitis. We had a difficult area at 22 to 25 cm and could not pass the adult colonoscope through this area due to the edema. Consequently, we switched out to our gastroscope, we made it around the hepatic flexure. Biopsies were then taken throughout as above. INDICATIONS: Avani is a 55-year-old female, who apparently had trouble with colonic inertia all her life. However, there was some question whether or not she had some type of colitis back in 2010 and 2011. She had been to her digital marketing officer Dr. Blaze Horn as well as [facility]. She has had endoscopies at both places. In fact, I found reference to a colonoscopy in [address] Molina in [place], [place]. On this occasion, she was having generalized abdominal pain with nausea, vomiting, diarrhea, and rectal bleeding. She came to emergency room for evaluation. White count was initially 11.6, but with hydration it is down to 6.1. She is anemic, coming at 14.0, but with hydration it is down to 10.9. Neutrophils were 82. Liver function tests were fine. Sedimentation rate is normal at 2, albumin is down at 2.7. Her urine specific gravity was elevated along with her urine ketones. Stool studies are pending. Electronically Signed By: ANANTH JEFFERSON MD 07/09/20 220 PATIENT NAME: AVANI TANNER OPERATIVE REPORT DATE OF : 69 REPORT #: [id number] PHYSICIAN: ANANTH JEFFERSON MD PCP: RUSS MENA REPORT IS CONFIDENTIAL AND NOT TO BE RELEASED WITHOUT AUTHORIZATION [facility] [address] [place], [place] [address] Signed She received one dose of Solu-Medrol along with some Flagyl, and was feeling much better this morning. I have been asked to see her as a General Surgeon on-call. Her abdomen was soft and flat with mild diffuse tenderness. There were no peritoneal signs or symptoms. On rectal exam at that time of endoscopy, there was no blood. CT scan did show pancolitis. I was asked to perform a colonoscopy for Avani. Avani is quite familiar with colonoscopy. She understands there is risk including, but not limited to gas bloating, crampy abdominal pain, bleeding, perforation requiring surgery, and missed diagnosis. In these acute situations, we always have our Anesthesia provider to help us with increased monitoring sedation with propofol. She had expressed understanding and wished to proceed. PROCEDURE NOTE: Avani was taken into our endoscopy suite and placed in the left lateral decubitus position. She was given IV sedation per nurse squeak rattle and leak repairer with propofol. A digital rectal exam was performed and this was unremarkable. Specifically, no inflammatory changes fistula tract and so forth around the anus. She had good sphincter tone. There was no blood on the index finger at the time of the rectal exam. The adult colonoscope was introduced and advanced under direct visualization of the camera. The findings were as above. We advanced up to 20 to 25 cm. We could get the adult colonoscope through this angulated area. She does have multiple hyperplastic appearing polyps in her rectum, which we did not address specifically today. We initially took our biopsies from 20 cm down with our adult colonoscope. After that, we had retroflexed the scope, we can see her [id number] internal hemorrhoids; that picture shows some blood after the biopsy. We then switched out to an adult gastroscope and very carefully went up to 20 to 25 cm, and spent a few minutes, we eventually were able to advance the scope through that area, we made all the way to pass the splenic flexure, where we saw a blue discoloration in all down the transverse colon over the hepatic flexure, we saw a blue discoloration and we could palpate hepatic flexure as well. The adult gastroscope would not advance any further. Her colon actually was quite clean except for a few areas of stool. Consequently, we got a good look at her mucosa. Again, really no obvious ulcerative colitis. Mainly, a little edema and some injection of the blood vessels. We took additional biopsies, then from hepatic flexure through the transverse colon, splenic flexure, and down the left colon that complement our previous biopsies. No evidence of any diverticular disease or any polyps up in the colon itself. After this, the gas had been suctioned out in the gastroscope and the gastroscope removed. Avani tolerated the procedure quite well. RECOMMENDATIONS: Avani will be returned to her room on the Internal Medicine Service. She can resume a diet. Contact hospitalist and review the above findings. Electronically Signed By: ANANTH JEFFERSON MD 07/09/20 9816 PATIENT NAME: AVANI TANNER OPERATIVE REPORT DATE OF : 69 REPORT #: [id number] PHYSICIAN: ANANTH JEFFERSON MD PCP: RUSS MENA REPORT IS CONFIDENTIAL AND NOT TO BE RELEASED WITHOUT AUTHORIZATION [address] [address] Signed MD KELLI Ballard/JYOTI /[id number] cc: MD Russ Ballard FNP Charles Hames, MD Copies: ANANTH JEFFERSON MD, WADE R FNP HAMES, CHARLES MD ~ Electronically Signed By: ANANTH JEFFERSON MD 07/09/20 2201 PATIENT NAME: AVANI TANNER OPERATIVE REPORT DATE OF : 69 REPORT #: [id number] PHYSICIAN: ANANTH JEFFERSON MD PCP: RUSS MENA REPORT IS CONFIDENTIAL AND NOT TO BE RELEASED WITHOUT AUTHORIZATION
--- NOTE | 2020-07-09 22:39 | NUR ---
PT RESTING WITH EYES CLOSED, RESP EVEN AND UNLABORED.
--- NOTE | 2020-07-09 23:46 | NUR ---
PT AWAKENS TO IV PUMP ALARMING, UP TO VR TO VOID. STATES ABD PAIN IS MINIMAL, DENIES NAUSEA. WAS ABLE TO VOID 250ML YELLOW URINE, BACK TO BED TO TRY TO SLEEP.
--- NOTE | 2020-07-10 02:23 | NUR ---
PT RESTING IN BED, RESP EVEN AND UNLABORED.
--- NOTE | 2020-07-10 04:20 | NUR ---
IN TO CHECK ON PT, PT RESTING WITH EYES CLOSED, RESP EVEN AND UNLABORED.
--- NOTE | 2020-07-10 06:20 | NUR ---
IN TO CHECK ON PT, ASSESSMENT DONE, DENIES NEEDS, EXPRESSING DESIRE TO GO HOME TODAY.
--- NOTE | 2020-07-10 07:53 | NUR ---
this rn recieved report from kina walker. pt appears to be resting at this time with call light within reach and respirations noted
--- NOTE | 2020-07-10 09:30 | NUR ---
THIS RN IN PTS ROOM TO DISCUSS WITH PT ABOUT HER NEW LOW FIBER DIET. THIS RN DISCUSSED WITH PT THAT IF SHE WANTS TO GO HOME SHE NEEDS TO NOT GET NAUSEA WHEN SHE EATS, SO SHE NEEDS TO GO SLOW ON A LOW FIBER DIET. PT STATES UNDERSTANDING THAT SHE WILL NEED TO CHANGE HER DIET.
--- NOTE | 2020-07-10 10:29 | NUR ---
PATIENT SITTING UP IN BED EATING BREAKFAST. CALL LIGHT IN REACH. NO FURTHER NEEDS AT THIS TIME.
--- NOTE | 2020-07-11 11:12 | PATH ---
[facility] [address] [place], [place] [address] Signed SPECIMEN(S): A COLON AT 20 CM SPECIMEN(S): B COLON AT 15 CM SPECIMEN(S): C RECTUM AT 10 CM SPECIMEN(S): D RECTUM AT 5 CM SPECIMEN(S): E HEPATIC FLEXURE SPECIMEN(S): F PROXIMAL TRANSVERSE SPECIMEN(S): G MID TRANSVERSE SPECIMEN(S): H SPLENIC FLEXURE SPECIMEN(S): I COLON AT 40 CM SPECIMEN(S): J COLON AT 30 CM SPECIMEN(S): K COLON AT 35 CM SPECIMEN SOURCE: A. COLON AT 20 CM B. COLON AT 15 CM C. RECTUM AT 10 CM D. RECTUM AT 5 CM E. HEPATIC FLEXURE F. PROXIMAL TRANSVERSE G. MID TRANSVERSE H. SPLENIC FLEXURE I. COLON AT 40 CM J. COLON AT 30 CM K. COLON AT 35 CM CLINICAL HISTORY: Abdominal pain, diarrhea. History of ulcerative colitis. Rule out viral colitis. MICROSCOPIC DESCRIPTION: Histologic sections of all submitted blocks are examined by light microscopy. These findings, together with the gross examination, support the pathologic diagnosis. FINAL PATHOLOGIC DIAGNOSIS: A. Colon, 20 cm, biopsy: - Colonic mucosa with no histopathologic abnormality. - Negative for active, chronic, or microscopic colitis. - Negative for dysplasia or malignancy. B. Colon, 15 cm, biopsy: - Colonic mucosa with no histopathologic abnormality. - Negative for active, chronic, or microscopic colitis. PATIENT NAME: CIROTITIIFTIKHAR MEDELLINIE PATHOLOGY DATE OF : 69 REPORT #: [id number] PHYSICIAN: BARBARA MARES PCP: ALEJANDRA MENA REPORT IS CONFIDENTIAL AND NOT TO BE RELEASED WITHOUT AUTHORIZATION [facility] [address] [place], [place] [address] Signed - Negative for dysplasia or malignancy. C. Rectum, 10 cm, biopsy: - Rectal mucosa with no histopathologic abnormality. - Negative for chronic, active, or microscopic proctitis. - Negative for dysplasia or malignancy. D. Rectum, 5 cm, biopsy: - Rectal mucosa with no histopathologic abnormality. - Negative for active, chronic, or microscopic proctitis. - Negative for dysplasia or malignancy. E. Colon, hepatic flexure, biopsy: - Colonic mucosa with no histopathologic abnormality. - Negative for active, chronic, or microscopic colitis. - Negative for dysplasia or malignancy. F. Colon, proximal transverse, biopsy: - Colonic mucosa with no histopathologic abnormality. - Negative for active, chronic, or microscopic colitis. - Negative for dysplasia or malignancy. G. Colon, mid transverse, biopsy: - Colonic mucosa with no histologic abnormality. - Negative for active, chronic, or microscopic colitis. - Negative for dysplasia or malignancy. H. Colon, splenic flexure, biopsy: - Colonic mucosa with no histopathologic abnormality. - Negative for active, chronic, or microscopic colitis. - Negative for dysplasia or malignancy. I. Colon, 40 cm, biopsy: - Colonic mucosa with no histopathologic abnormality. - Negative for active, chronic, or microscopic colitis. - Negative for dysplasia or malignancy. J. Colon, 30 cm, biopsy: - Colonic mucosa with no histopathologic abnormality. - Negative for active, chronic, or microscopic colitis. - Negative for dysplasia or malignancy. K. Colon, 35 cm, biopsy: - Colonic mucosa with no histopathologic abnormality. - Negative for active, chronic, or microscopic colitis. - Negative for dysplasia or malignancy. COMMENT: The provided clinical history of ulcerative colitis is noted. The biopsy PATIENT NAME: TITI TANNER PATHOLOGY DATE OF : 69 REPORT #: [id number] PHYSICIAN: BARBARA PATHOLOGY PCP: ALEJANDRA MENA REPORT IS CONFIDENTIAL AND NOT TO BE RELEASED WITHOUT AUTHORIZATION [facility] [address] [place] [address] Signed tissue demonstrates no features of active or chronic disease. There are no viral cytopathic changes identified in any of the biopsied tissue. Continued clinical surveillance is recommended. NAL:cml:C2NR GROSS DESCRIPTION: Eleven specimens are received in eleven containers, labeled "BD." A. The specimen, labeled "BD," and designated on the requisition "colon biopsy at 20 cm," is received in formalin and consists of one fragment of pink-ayoub tissue (0.2 x 0.2 x 0.1 cm). The specimen is submitted entirely in cassette (A1). B. The specimen, labeled "BD," and designated on the requisition "colon biopsy at 15 cm," is received in formalin and consists of one fragment of pink-ayoub tissue (2.3 x 0.3 x 0.1 cm). The specimen is submitted entirely in cassette (B1). C. The specimen, labeled "BD," and designated on the requisition "rectum biopsy at 10 cm," is received in formalin and consists of one fragment of white-ayoub tissue (0.6 x 0.2 x 0.1 cm). The specimen is submitted entirely in cassette (C1). D. The specimen, labeled "BD," and designated on the requisition "rectum biopsy at 5 cm," is received in formalin and consists of one fragment of pink-ayoub tissue (0.2 x 0.2 x 0.2 cm). The specimen is submitted entirely in cassette (D1). E. The specimen, labeled "BD," and designated on the requisition "hepatic flexure biopsy," is received in formalin and consists of one fragment of pink-ayoub tissue (0.2 x 0.2 x 0.1 cm). The specimen is submitted entirely in cassette (E1). F. The specimen, labeled "BD," and designated on the requisition "proximal transverse biopsy," is received in formalin and consists of one fragment of pink-ayoub tissue (2.3 x 0.3 x 0.2 cm). The specimen is submitted entirely in cassette (F1). G. The specimen, labeled "BD," and designated on the requisition "mid transverse biopsy," is received in formalin and consists of one fragment of pink-ayoub tissue (0.3 x 0.2 x 0.2 cm). The specimen is submitted entirely in cassette (G1). H. The specimen, labeled "BD," and designated on the requisition "splenic flexure biopsy," is received in formalin and consists of one fragment of pink-ayoub tissue (0.3 x 0.2 x 0.1 cm). The specimen is submitted entirely in cassette (H1). I. The specimen, labeled "BD," and designated on the requisition "colon biopsy PATIENT NAME: TITI TANNER PATHOLOGY DATE OF : 69 REPORT #: [id number] PHYSICIAN: BARBARA PATHOLOGY PCP: ALEJANDRA MENA REPORT IS CONFIDENTIAL AND NOT TO BE RELEASED WITHOUT AUTHORIZATION [facility] [address] [place], [place] [address] Signed at 40 cm," is received in formalin and consists of one fragment of pink-ayoub tissue (0.3 x 0.3 x 0.2 cm). The specimen is submitted entirely in cassette (I1). J. The specimen, labeled "BD," and designated on the requisition "colon biopsy at 30 cm," is received in formalin and consists of one fragment of pink-ayoub tissue (0.2 x 0.2 x 0.1 cm). The specimen is submitted entirely in cassette (J1). K. The specimen, labeled "BD," and designated on the requisition "colon biopsy at 35 cm," is received in formalin and consists of one fragment of pink-ayoub tissue (0.3 x 0.2 x 0.2 cm). The specimen is submitted entirely in cassette (K1). AC (under the direct supervision of a pathologist) The Gross Description was prepared using a voice recognition system. The report was reviewed for accuracy; however, sound-alike word errors, addition and/or deletions may occur. If there is any question about this report, please contact Client Services. PERFORMING LABORATORY: The technical component was performed by [facility], [address] [place] [address] (Nuclear Powerplant Mechanic Helper: Odalys Hernandez MD; CLIA# [id number]). Professional interpretation was performed by [employer] [facility], [address] [address] (CLIA# [id number]). Diagnostician: Temitope Miller MD Pathologist Electronically Signed 07/11/2020 Copies: ~ PATIENT NAME: CIROTITIIFTIKHAR MEDELLINIE PATHOLOGY DATE OF : 69 REPORT #: [id number] PHYSICIAN: BARBARA PATHOLOGY PCP: ALEJANDRA MENA REPORT IS CONFIDENTIAL AND NOT TO BE RELEASED WITHOUT AUTHORIZATION
== END 2020-07-10 11:40 | disposition home or self-care (01) | DRG 392 ==
LOC: ED 14:21 → MS 18:13
PROVIDERS: Colon & Rectal Surgery; ADMIT Internal Medicine; ATTEND Internal Medicine
PROC: 0DBE8ZX Excision of Large Intestine, Via Natural or Artificial Opening Endoscopic, Diagnostic (ICD-10-PCS; principal; 2020-07-09 11:04)
DX: K52.9 Noninfective gastroenteritis and colitis, unspecified (principal); E86.0 Dehydration; F17.210 Nicotine dependence, cigarettes, uncomplicated; K64.8 Other hemorrhoids; Z79.899 Other long term (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; Z88.8 Allergy status to other drugs, medicaments and biological substances; Z88.5 Allergy status to narcotic agent; Z85.42 Personal history 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us
CPT/HCPCS: 36415; 74177; 80048; 80053; 81001; 83690; 83735; 84100; 85025; 85651; 86140; 99285-25; J0780; J1170; J1790; J2001; J2405; J2704; J2920; J7030; J7121; Q9967

== ENCOUNTER 2020-07-12 12:44 | Emergency (ER) | payer OTHER ==
[~2020-07-12] VITALS: Ht 157.5 cm; Wt 57.6 kg
--- OUTSIDE RECORDS SUMMARY | 2020-07-12 12:46 | XMS ---
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 CRITERIA MET - Group Notification - [facility] - Has Care Guidelines - [facility] - 2 Visits in 30 Days CARE PROVIDERS RUSS MENA Nurse Practitioner: Family 08/05/2018-Current PHONE: [phone] Rodriguez has no Care Guidelines for this patient. Care History Medical/Surgical 06/16/2020 [facility] Spoke with patient about using Clinic instead [...] referral for a specialist.\T\nbsp; Patient agreed. 08/05/2018 [facility] - Patient is currently established with [facility]. If patient is seen in the ED during business hours. Please contact CHWs at [facility]. Care Recommendation: If this patient has had 5 or more Emergency Department visits in the last 12 months.\T\nbsp; Patient will require education on the scope and purpose of the ED as an acute care provider not a Primary Care Provider and should not be utilized for chronic conditions.\T\nbsp; These are guidelines and the provider should exercise clinical judgment when providing care. Angela VISIT COUNT (12 MO.) [address] Sonam [place] 6 [facility] Benjamin TOTAL 7 NOTE: Visits indicate total known visits. 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 - Allergy status to narcotic agent status 08/22/2019 08:31 [facility] Meir SHE[facility]ERD TYPE: Emergency DIAGNOSES: - Unspecified fall, [...] status to narcotic agent status - Other intermediate (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 - Allergy status to other drugs, medicaments and biological sub - Right lower quadrant pain - 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 07/28/2019 08:26 [facility] [place] TYPE: Emergency COMPLAINT: - VOMITING, CHEST PAIN DIAGNOSES: - Other intermediate (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 - Allergy status to [...] abdominal pain INPATIENT VISIT TRACKING (12 MO.) 07/08/2020 18:13 [facility] [place] TYPE: Medical Surgical COMPLAINT: - PANCOLITIS DIAGNOSES: - Other intermediate (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 - Dehydration - 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
[2020-07-12] MEDS ORDERED: PREDNISONE20 MG PO (15:38)
[2020-07-12] MEDS ORDERED: ONDANSETRON ODT4 MG PO (15:38)
[2020-07-12] MEDS ORDERED: NORCO 5-325 TA1 EACH PO (15:38)
== END 2020-07-12 16:10 | disposition home or self-care (01) ==
LOC: ED 12:44
DX: K52.9 Noninfective gastroenteritis and colitis, unspecified (principal); F17.200 Nicotine dependence, unspecified, uncomplicated; Z88.8 Allergy status to other drugs, medicaments and biological substances; Z88.5 Allergy status to narcotic agent; Z79.899 Other long term (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
CPT/HCPCS: 74177; 80053; 81001; 83690; 85025; 99284-25; J1100; J1170; J2405; J7030; Q9967

== ENCOUNTER → 2020-07-22 | Emergency (ER) | payer OTHER ==
[~2020-07-22] VITALS: Ht 157.5 cm; Wt 56.7 kg
[~2020-07-22] MED LIST changes: +NORCO 5-325 TA1 EACH PO; +ONDANSETRON ODT4 MG PO; +PREDNISONE20 MG PO
--- OUTSIDE RECORDS SUMMARY | 2020-07-22 07:20 | XMS ---
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 CRITERIA MET - Group Notification - [facility] - Has Care Guidelines - [facility] - 2 Visits in 30 Days CARE PROVIDERS RUSS MENA Nurse Practitioner: Family 08/05/2018-Current PHONE: [phone] Rodriguez has no Care Guidelines for this patient. Care History Medical/Surgical 07/14/2020 [facility] Patient has scheduled follow up with PCP Russ Mena on 07/17/2020; Scheduled follow up with Dr. Donovan on 07/18/2020 06/16/2020 [facility] Spoke with patient about using Clinic [...] referral for a specialist.\T\nbsp; Patient agreed. 08/05/2018 [facility] - Patient is currently established with [facility]. If patient is seen in the ED during business hours. Please contact CHWs at [facility]. Care Recommendation: If this patient has had [...] care. E.D. VISIT COUNT (12 MO.) [address] Sonam Worley 6 AGUSTÍN Benjamin TOTAL 7 NOTE: Visits indicate total known visits. 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 [facility] [place] TYPE: Emergency COMPLAINT: - RECTAL BLEEDING, ABD PAIN 06/14/2020 13:[address] [facility] [address] 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 - Allergy status to narcotic agent status 08/22/2019 08:31 [facility] Sonam [facility]Sun Sally Zavala [place] TYPE: Emergency DIAGNOSES: - Unspecified fall, initial encounter - Fall - Constipation - fall/left side pain - Contusion of left front wall of thorax, initial encounter - Rib Pain - Slow transit constipation 08/08/2019 16:01 [facility] Pal[facility] TYPE: Emergency COMPLAINT: - ABD PAIN/VOMITTING DIAGNOSES: - Nicotine dependence, unspecified, uncomplicated - Left lower quadrant pain - Allergy status to narcotic agent status - Other 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 operator (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 - Allergy status to other drugs, medicaments and biological sub - Right lower quadrant pain - 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 07/28/2019 08:26 [facility] [place] TYPE: Emergency COMPLAINT: - VOMITING, CHEST PAIN DIAGNOSES: - Other 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 operator (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 - Allergy status to narcotic agent status - Nausea with vomiting, unspecified - Nicotine dependence, unspecified, uncomplicated - Acute gastritis without bleeding INPATIENT VISIT TRACKING (12 MO.) 07/08/2020 18:13 [facility] [place] TYPE: Medical Surgical COMPLAINT: - PANCOLITIS DIAGNOSES: - Other half-way (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 - Dehydration - 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
== END ==
LOC: ED 07:18
DX: K52.9 Noninfective gastroenteritis and colitis, unspecified (principal); F17.200 Nicotine dependence, unspecified, uncomplicated; Z88.8 Allergy status to other drugs, medicaments and biological substances; Z88.5 Allergy status to narcotic agent; Z79.899 Other long term (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
CPT/HCPCS: 74177; 80053; 81001; 83605; 83690; 85025; 96361; 99285-25; J1170; J2405; J2543; J2930; J7030; J7121; Q9967

== ENCOUNTER 2020-08-15 13:07 | Emergency (ER) | payer OTHER ==
[~2020-08-15] VITALS: Ht 157.5 cm; Wt 56.7 kg
--- OUTSIDE RECORDS SUMMARY | 2020-08-15 13:10 | XMS ---
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 CRITERIA MET - Group Notification - [facility] - Has Care Guidelines - [facility] - 2 Visits in 30 Days CARE PROVIDERS RUSS MENA Nurse Practitioner: Family 08/05/2018-Current PHONE: [phone] Rodriguez has no Care Guidelines for this patient. Care History Medical/Surgical 07/14/2020 [facility] Patient has scheduled follow up with PCP Russ Mena on 07/17/2020; Scheduled follow up with Dr. Donovan on 07/18/2020 06/16/2020 [facility] Spoke with patient about using Clinic instead [...] referral for a specialist.\T\nbsp; Patient agreed. 08/05/2018 [facility] - Patient is currently established with [facility]. If patient is seen in the ED during business hours. Please contact CHWs at [facility]. Care Recommendation: If this patient has had [...] care. E.D. VISIT COUNT (12 MO.) [address] Sonam [place] 5 [place] TOTAL 6 NOTE: Visits indicate total known visits. ED/UCC VISIT TRACKING (12 MO.) 08/15/2020 13:08 [place] TYPE: Emergency COMPLAINT: - ABD PAIN, VOMITING, BLOODY STOOL 07/22/2020 07:19 [place] TYPE: Emergency COMPLAINT: - VOMITING, RECTAL BLEEDING DIAGNOSES: - Other [place] [facility] [place] (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 - Allergy status to narcotic agent - Nausea with vomiting, unspecified - Allergy status to other drugs, medicaments and biological substances - Nicotine dependence, unspecified, uncomplicated - Noninfective gastroenteritis and colitis, unspecified 07/12/2020 12:[address] [facility] [place] TYPE: Emergency COMPLAINT: - ABD PAIN DIAGNOSES: - Generalized abdominal pain - Nicotine dependence, unspecified, uncomplicated - Noninfective gastroenteritis and colitis, unspecified - Other [place] [facility] [place] (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 - Allergy status to narcotic agent - Allergy status to other drugs, medicaments and biological substances 07/08/2020 14:[address] [facility] [address] TYPE: Emergency COMPLAINT: - RECTAL BLEEDING, ABD PAIN 06/14/2020 13:21 [place] TYPE: Emergency COMPLAINT: - ABDOMINAL PAIN DIAGNOSES: - Nicotine dependence, unspecified, uncomplicated - Peptic ulcer, site unspecified, unspecified as acute or chronic, without hemorrhage or perforation - Allergy status to other drugs, medicaments and biological substances - Epigastric pain - Other [place] [facility] [place]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 - Allergy status to narcotic agent [facility]2019 [facility] DIAGNOSES: - Unspecified fall, initial encounter - Fall - Constipation - fall/left side pain - Contusion of left front wall of thorax, initial encounter - Rib Pain - Slow transit constipation INPATIENT VISIT TRACKING (12 MO.) 07/22/2020 14:34 [facility] [place] TYPE: Internal Medicine DIAGNOSES: - Gastrointestinal hemorrhage, unspecified - Sepsis, colitis - Noninfective gastroenteritis and colitis, unspecified 07/08/2020 18:[address] [facility] TYPE: Medical Surgical COMPLAINT: - PANCOLITIS DIAGNOSES: - Other [place] [facility] [place]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 - Dehydration - 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us - Nicotine dependence, cigarettes, uncomplicated - Noninfective gastroenteritis and colitis, unspecified - Allergy status to narcotic agent - Hemorrhage of anus and rectum - Allergy status to other drugs, medicaments and biological substances - Other hemorrhoids [email or web address]
[2020-08-15] MEDS ORDERED: ANUSOL-HC25 MG PR (15:45)
[2020-08-15] MEDS ORDERED: ONDANSETRON ODT8 MG PO (15:45)
[2020-08-15] MEDS ORDERED: CARAFATE1 GM PO (15:45)
[2020-08-15] MEDS ORDERED: NORCO 5-325 TA1 EACH PO (15:49)
== END 2020-08-15 16:03 | disposition home or self-care (01) ==
LOC: ED 13:07
DX: K64.9 Unspecified hemorrhoids (principal); R10.13 Epigastric pain; F17.200 Nicotine dependence, unspecified, uncomplicated; Z88.8 Allergy status to other drugs, medicaments and biological substances; Z88.5 Allergy status to narcotic agent; Z79.899 Other long term (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
CPT/HCPCS: 80053; 85025; 96374; 96375; 99283-25; J1170; J2405; J7030

== ENCOUNTER 2021-03-15 11:44 | Emergency (ER) | payer OTHER ==
[~2021-03-15] VITALS: Ht 157.5 cm; Wt 59.0 kg
[~2021-03-15 11:44] MED LIST changes: +ANUSOL-HC25 MG PR
--- OUTSIDE RECORDS SUMMARY | 2021-03-15 11:46 | XMS ---
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 Care History Medical/Surgical 07/14/2020 [facility] Patient has scheduled follow up with PCP Russ Mena on 07/17/2020; Scheduled follow up with Dr. Donovan on 07/18/2020 06/16/2020 [facility] Spoke with patient about using Clinic instead [...] referral for a specialist.\T\nbsp; Patient agreed. 08/05/2018 [facility] - Patient is currently established with [facility]. If patient is seen in the ED during business hours. Please contact CHWs at [facility]. Care Recommendation: If this patient has had [...] providing care. Angela VISIT COUNT (12 MO.) 6 [facility] Benjamin TOTAL 6 NOTE: Visits indicate total known visits. 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 - Allergy status to narcotic agent - Epigastric pain - Unspecified hemorrhoids - Allergy status to other drugs, medicaments and biological substances 07/22/2020 07:19 [place] TYPE: Emergency COMPLAINT: - VOMITING, RECTAL BLEEDING DIAGNOSES: - Other shelter (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 - Allergy status to narcotic agent - Nausea with vomiting, unspecified - Allergy status to other drugs, medicaments and biological substances - Allergy status to narcotic agent - Nicotine dependence, unspecified, uncomplicated - Allergy status to other drugs, medicaments and biological substances - Noninfective gastroenteritis and colitis, unspecified 07/12/2020 12:45 [place] TYPE: Emergency COMPLAINT: - ABD PAIN DIAGNOSES: - Generalized abdominal pain - Nicotine dependence, unspecified, uncomplicated - Allergy status to other drugs, medicaments and biological substances - Noninfective gastroenteritis and colitis, unspecified - 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 - Allergy status to narcotic agent - Allergy status to other drugs, medicaments and biological substances - Allergy status to narcotic agent 07/08/2020 14:21 [place] TYPE: Emergency COMPLAINT: - RECTAL BLEEDING, ABD PAIN 06/14/2020 13:21 [place] TYPE: Emergency COMPLAINT: - ABDOMINAL PAIN DIAGNOSES: - Nicotine dependence, unspecified, uncomplicated - Peptic ulcer, site unspecified, unspecified as acute or chronic, without hemorrhage or perforation - Allergy status to other drugs, medicaments and biological substances - Epigastric pain - Other shelter (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 - Allergy status to narcotic agent INPATIENT VISIT TRACKING (12 MO.) [facility]2020 [facility] [place] [facility] DIAGNOSES: - Gastrointestinal hemorrhage, unspecified - Sepsis, colitis - Noninfective gastroenteritis and colitis, unspecified 07/08/2020 18:[address] 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
[2021-03-15] MEDS ORDERED: VITAMIN D350 MC3 PO (12:02)
[2021-03-15] MEDS ORDERED: OMEPRAZOLE40 MG PO (12:04)
== END 2021-03-15 14:48 | disposition home or self-care (01) ==
LOC: ED 11:44
DX: R10.12 Left upper quadrant pain (principal); Z85.42 Personal history 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us; Z87.891 Personal history of nicotine dependence; Z88.8 Allergy status to other drugs, medicaments and biological substances; Z88.5 Allergy status to narcotic agent; Z79.899 Other long term (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
CPT/HCPCS: 80053; 81001; 83690; 85025; 96374; 96375; 99284-25; J1170; J2405

== ENCOUNTER 2021-04-05 13:10 | Emergency (ER) | payer OTHER ==
[~2021-04-05] VITALS: Ht 157.5 cm; Wt 59.0 kg
[~2021-04-05 13:10] MED LIST changes: +OMEPRAZOLE40 MG PO; +VITAMIN D350 MC3 PO
--- OUTSIDE RECORDS SUMMARY | 2021-04-05 13:20 | XMS ---
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 Care History Medical/Surgical 07/14/2020 [facility] Patient has scheduled follow up with PCP Russ Mena on 07/17/2020; Scheduled follow up with Dr. Donovan on 07/18/2020 06/16/2020 [facility] Spoke with patient about using Clinic [...] referral for a specialist.\T\nbsp; Patient agreed. 08/05/2018 [facility] - Patient is currently established with [facility]. If patient is seen in the ED during business hours. Please contact CHWs at [facility]. Care Recommendation: If this patient [...] providing care. E.D. VISIT COUNT (12 MO.) 7 [facility]. TOTAL 7 NOTE: Visits indicate total known visits. ED/UCC VISIT TRACKING (12 MO.) 04/05/2021 13:[address] [place] TYPE: Emergency COMPLAINT: - VOMITING, ABDOM PAIN 03/15/2021 11:45 [place] TYPE: Emergency COMPLAINT: - VOMITING,STOMACH PAIN DIAGNOSES: - Left upper quadrant pain - Allergy status to narcotic agent - Other intermediate (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 - 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us - Allergy status to other drugs, medicaments and biological substances - Personal history of nicotine dependence 08/15/2020 13:08 [place] TYPE: Emergency COMPLAINT: - ABD PAIN, VOMITING, BLOODY STOOL DIAGNOSES: - Allergy status to other drugs, medicaments and biological substances - Unspecified abdominal pain - Allergy status to narcotic agent - Nicotine dependence, unspecified, uncomplicated - Other intermediate (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 - Allergy status to narcotic agent - Epigastric pain - Unspecified hemorrhoids - Allergy status to other drugs, medicaments and biological substances 07/22/2020 07:19 [place] TYPE: Emergency COMPLAINT: - VOMITING, RECTAL BLEEDING DIAGNOSES: - 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 - Allergy status to [...] Noninfective gastroenteritis and colitis, unspecified - 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 - Allergy status to [...] biological substances - Epigastric pain - 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 - Allergy status to narcotic agent INPATIENT VISIT TRACKING (12 MO.) 07/22/2020 14:34 [facility] TYPE: Internal Medicine DIAGNOSES: - Gastrointestinal hemorrhage, unspecified - Sepsis, colitis - Noninfective gastroenteritis and colitis, unspecified 07/08/2020 18:13 [place] TYPE: Medical Surgical COMPLAINT: - PANCOLITIS DIAGNOSES: - Allergy status to narcotic agent - 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
[2021-04-05] MEDS ORDERED: ZOFRAN4 MG PO (15:48)
== END 2021-04-05 16:00 | disposition home or self-care (01) ==
LOC: ED 13:10
DX: K31.84 Gastroparesis (principal)
CPT/HCPCS: 74177; 80053; 83690; 85025; 96375; 99284-25; J1170; J2405; J7030; Q9967

== ENCOUNTER 2021-04-21 16:33 | Emergency (ER) | payer OTHER ==
[~2021-04-21] VITALS: Ht 157.5 cm; Wt 59.0 kg
--- OUTSIDE RECORDS SUMMARY | 2021-04-21 16:34 | XMS ---
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 Care History Medical/Surgical 07/14/2020 [facility] Patient has scheduled follow up with PCP Russ Mena on 07/17/2020; Scheduled follow up with Dr. Donovan on 07/18/2020 06/16/2020 [facility] Spoke with patient about using Clinic instead [...] referral for a specialist.\T\nbsp; Patient agreed. 08/05/2018 [facility] - Patient is currently established with [facility]. If patient is seen in the ED during business hours. Please contact CHWs at [facility]. Care Recommendation: If this patient [...] providing care. E.D. VISIT COUNT (12 MO.) 9 [facility]. TOTAL 9 NOTE: Visits indicate total known visits. ED/UCC VISIT TRACKING (12 MO.) 04/21/2021 16:[address] [facility] [place] TYPE: Emergency COMPLAINT: - VOMITING 04/21/2021 14:41 [place] TYPE: Emergency COMPLAINT: - ABD PAIN/ VOMITING 04/05/2021 13:[address] [facility] [place] TYPE: Emergency COMPLAINT: - VOMITING, ABDOM PAIN DIAGNOSES: - Unspecified abdominal pain - Gastroparesis 03/15/2021 11:[address] 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 - 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us - Allergy status to other drugs, medicaments and biological substances - Personal history of nicotine dependence 08/15/2020 13:08 [place] TYPE: Emergency COMPLAINT: - ABD PAIN, VOMITING, BLOODY STOOL DIAGNOSES: - Allergy status to other drugs, medicaments and biological substances - Unspecified abdominal pain - Allergy status to narcotic agent - Nicotine dependence, unspecified, uncomplicated - 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 [place] [place] TYPE: Emergency COMPLAINT: - RECTAL BLEEDING, ABD PAIN 06/14/2020 13:21 [place] TYPE: Emergency COMPLAINT: - ABDOMINAL PAIN DIAGNOSES: - Nicotine dependence, unspecified, uncomplicated - Peptic ulcer, site unspecified, unspecified as acute or chronic, without hemorrhage or perforation - Allergy status to other drugs, medicaments and biological substances - Epigastric pain - Other [facility] (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 - Allergy status to narcotic agent INPATIENT VISIT TRACKING (12 MO.) 07[facility]22/2020 [facility] DIAGNOSES: - Gastrointestinal hemorrhage, unspecified - Sepsis, colitis - Noninfective gastroenteritis and colitis, unspecified 07/08/2020 18:13 [place] TYPE: Medical Surgical COMPLAINT: - PANCOLITIS DIAGNOSES: - Allergy status to narcotic agent - Other [facility] (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 - Dehydration - 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us - Nicotine dependence, cigarettes, uncomplicated - Noninfective gastroenteritis and colitis, unspecified - Allergy status to narcotic agent - Hemorrhage of anus and rectum - Allergy status to other drugs, medicaments and biological substances - Allergy status to other drugs, medicaments and biological substances - Other hemorrhoids [email or web address]
[2021-04-21] MEDS ORDERED: NORTRIPTYLINE H10 MG PO (16:49)
[2021-04-21] MEDS ORDERED: MIRALAX17 GM PO (16:51)
[2021-04-21] MEDS ORDERED: REGLAN10 MG PO (18:00)
== END 2021-04-21 19:16 | disposition home or self-care (01) ==
LOC: ED 16:33
DX: K31.84 Gastroparesis (principal); F17.200 Nicotine dependence, unspecified, uncomplicated; Z88.8 Allergy status to other drugs, medicaments and biological substances; Z88.5 Allergy status to narcotic agent; Z79.899 Other long term (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
CPT/HCPCS: 80053; 83735; 85025; 96374; 96375; 99284-25; J2405; J2765; J7030

== ENCOUNTER 2021-09-03 15:37 | Emergency (ER) | payer OTHER ==
[~2021-09-03] VITALS: Ht 157.5 cm; Wt 62.1 kg
[~2021-09-03 15:37] MED LIST changes: +MIRALAX17 GM PO; +NORTRIPTYLINE H10 MG PO
--- OUTSIDE RECORDS SUMMARY | 2021-09-03 15:40 | XMS ---
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 Care History Medical/Surgical 07/14/2020 [facility] Patient has scheduled follow up with PCP Russ Mena on 07/17/2020; Scheduled follow up with Dr. Donovan on 07/18/2020 06/16/2020 [facility] Spoke with patient about using Clinic [...] referral for a specialist.\T\nbsp; Patient agreed. 08/05/2018 [facility] - Patient is currently established with [facility]. If patient is seen in the ED during business hours. Please contact CHWs at [facility]. Care Recommendation: If this patient has had [...] COUNT (12 MO.) 1 [facility] 6 [facility] TOTAL 7 NOTE: Visits indicate total known visits. ED/C VISIT TRACKING (12 MO.) 09/03/2021 15:38 [place] TYPE: Emergency COMPLAINT: - CONSTIPATION 07/30/2021 15:[address] 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 - Nausea with vomiting, unspecified - Nicotine dependence, unspecified, uncomplicated - Allergy status to other drugs, medicaments and biological substances - Gastroparesis 04/21/2021 14:41 [place] TYPE: Emergency COMPLAINT: - ABD PAIN/ VOMITING 04/05/2021 13:11 [place] TYPE: Emergency COMPLAINT: - VOMITING, ABDOM PAIN DIAGNOSES: - Unspecified abdominal pain - Gastroparesis 03/15/2021 11:45 [place] TYPE: Emergency COMPLAINT: - VOMITING,STOMACH PAIN DIAGNOSES: - Left upper quadrant pain - Allergy status to narcotic agent - 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
== END 2021-09-03 21:57 | disposition home or self-care (01) ==
LOC: ED 15:37
DX: K59.00 Constipation, unspecified (principal); F17.200 Nicotine dependence, unspecified, uncomplicated; Z88.8 Allergy status to other drugs, medicaments and biological substances; Z88.5 Allergy status to narcotic agent; Z79.899 Other long term (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
CPT/HCPCS: 74177; 80053; 81001; 83690; 85025; 96375; 99284-25; J1170; J2405; J7030; Q9967

== ENCOUNTER 2021-09-30 04:20 | Emergency (ER) | payer OTHER ==
[~2021-09-30] VITALS: Ht 157.5 cm; Wt 63.6 kg
--- OUTSIDE RECORDS SUMMARY | 2021-09-30 04:22 | XMS ---
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 2 event(s) in the past 18 months Most recent security events: Elopement at [facility] 07/30/2021 12:57 - Other Details: PATIENT LWBS Elopement at [facility] 04/21/2021 14:41 - Other Details: PATIENT LWBS CRITERIA MET - [facility] - 2 Visits in 30 Days - [facility] - Has Care Guidelines - Group Notification - 6 ED Visits in 6 Months CARE PROVIDERS RUSS MENA Nurse Practitioner: Family 08/05/2018-Current PHONE: Unknown SACHI PUTNAM Internal Medicine 03/19/2021-Current PHONE: Unknown Rodriguez has no Care Guidelines for this patient. Care History Medical/Surgical 09/05/2021 [facility] Patient stated it is too hard to get into see her PCP, Dr. Putnam, but sees a specialist. No follow up scheduled with Dr. Putnam. 07/14/2020 [facility] Patient has scheduled follow up with PCP Russ Mena on 07/17/2020; Scheduled follow up with Dr. Donovan on 07/18/2020 06/16/2020 [facility] Spoke with patient about using Clinic instead [...] a referral for a specialist.\T\nbsp; Patient agreed. E.D. VISIT COUNT (12 MO.) 1 [facility] 7 [facility]. TOTAL 8 NOTE: Visits indicate total known visits. ED/UCC VISIT TRACKING (12 MO.) 09/30/2021 04:21 [place] TYPE: Emergency COMPLAINT: - N/V 09/03/2021 15:38 [place] TYPE: Emergency COMPLAINT: - CONSTIPATION DIAGNOSES: - Nicotine dependence, unspecified, uncomplicated - Allergy status to other drugs, medicaments and biological substances - Other [facility] (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 - Constipation, unspecified - Allergy status to narcotic agent 07/30/2021 15:11 [facility] [place] TYPE: Emergency DIAGNOSES: - vomiting, fever, abd issues - Noninfective gastroenteritis and colitis, unspecified - Abdominal Pain - Emesis 07/30/2021 12:57 [place] TYPE: Emergency COMPLAINT: - VOMITING, FEVER, COUGH, RUNNY NOSE, BODY PAIN 04/21/2021 16:33 [place] TYPE: Emergency COMPLAINT: - VOMITING DIAGNOSES: - Allergy status to narcotic agent - 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
[2021-09-30] MEDS ORDERED: REGLAN10 MG PO (06:39)
--- NOTE | 2021-09-30 07:50 | EKG ---
[facility] [address] [place], [place] [address] Signed Sinus tachycardia Otherwise normal ECG When compared with ECG of 28-JUL-2019 08:35, No significant change was found Confirmed by LYDIA QUIÑONEZ MD ([id number]) on 09/30/2021 7:50:38 AM Electronically Signed By: LYDIA QUIÑONEZ MD 09/30/21 0750 PATIENT NAME: CIROTITI JAMES Electrocardiogram DATE OF : 69 PHYSICIAN: LYDIA QUIÑONEZ MD REPORT #: [id number] REPORT IS CONFIDENTIAL AND NOT TO BE RELEASED WITHOUT AUTHORIZATION
== END 2021-09-30 06:50 | disposition home or self-care (01) ==
LOC: ED 04:20
DX: K31.84 Gastroparesis (principal); F17.200 Nicotine dependence, unspecified, uncomplicated; Z88.8 Allergy status to other drugs, medicaments and biological substances; Z88.5 Allergy status to narcotic agent; Z79.899 Other long term (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
CPT/HCPCS: 74177; 80053; 81001; 83690; 83735; 84703; 85025; 93005; 93010; 96374; 96375; 99285-25; J1170; J2405; J2765; J7030; J7040; Q9967

== ENCOUNTER 2021-12-10 02:35 | Emergency (ER) | payer OTHER ==
[~2021-12-10] VITALS: Ht 157.5 cm; Wt 61.0 kg
--- OUTSIDE RECORDS SUMMARY | 2021-12-10 02:38 | XMS ---
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 Care History Medical/Surgical 10/02/2021 [facility] No follow up scheduled with PCP. 10/01/2021 [facility] - Patient is currently established with [facility]. If patient is seen in the ED during business hours. Please contact CHWs at [facility]. Care Recommendation: If this patient has had 5 or more Emergency Department visits in the last 12 months. Patient will require education on the scope and purpose of the ED as an acute care provider not a Primary Care Provider and should not be utilized for chronic conditions. These are guidelines and the provider should exercise clinical judgment when providing care. 09/05/2021 [facility] Patient stated it is too hard to get into see her PCP, Dr. Putnam, but sees a specialist. No follow up scheduled with Dr. Putnam. Angela [facility] (12 MO.) [facility] TOTAL [facility] NOTE: Visits indicate total known visits. 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 [place] TYPE: Emergency COMPLAINT: - CONSTIPATION DIAGNOSES: - Nicotine dependence, unspecified, uncomplicated - Allergy status to other drugs, medicaments and biological substances - Other [facility] (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 - Constipation, unspecified - Allergy status to narcotic agent 07/30/2021 15:11 [facility] TYPE: Emergency DIAGNOSES: - vomiting, fever, abd issues - Noninfective gastroenteritis and colitis, unspecified - Abdominal Pain - Emesis 07/30/2021 12:57 [facility] [place] TYPE: Emergency COMPLAINT: - VOMITING, FEVER, COUGH, RUNNY NOSE, BODY PAIN 04/21/2021 16:33 [facility] [place] TYPE: Emergency COMPLAINT: - VOMITING DIAGNOSES: - Allergy status to narcotic agent - 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 [place] TYPE: Emergency COMPLAINT: - VOMITING,STOMACH PAIN DIAGNOSES: - Left upper quadrant pain - Allergy status to narcotic agent - Other [facility] (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 - 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us - Allergy status to other drugs, medicaments and biological substances - Personal history of nicotine dependence INPATIENT VISIT TRACKING (12 MO.) No inpatient visits to display in this time frame [email or web address]
[2021-12-10] MEDS ORDERED: REGLAN10 MG PO (04:57)
== END 2021-12-10 05:10 | disposition home or self-care (01) ==
LOC: ED 02:35
DX: K52.9 Noninfective gastroenteritis and colitis, unspecified (principal); K31.84 Gastroparesis; Z85.42 Personal history 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us; F17.200 Nicotine dependence, unspecified, uncomplicated; Z88.5 Allergy status to narcotic agent; Z88.8 Allergy status to other drugs, medicaments and biological substances; Z79.899 Other long term (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
CPT/HCPCS: 36415; 74177; 80053; 81001; 83735; 85025; 85610; 85730; 96375; 99284-25; C9113; J1170; J2405; J2765; J7030; Q9967

== ENCOUNTER 2022-05-04 16:25 | Inpatient (IN) | payer OTHER ==
[~2022-05-04] VITALS: Ht 157.5 cm; Wt 64.5 kg
--- NOTE | ~2022-05-04 | CONS ---
[facility] [address] [place], [place] [address] Draft DATE OF CONSULTATION: 05/05/2022 REQUESTING PHYSICIAN: Dr. Soares. PROBLEM: Left upper abdominal pain, left-sided colonic wall thickening, possible "colitis." HISTORY OF PRESENT ILLNESS: This 56-year-old white woman was admitted yesterday, May 04, 2022 on the basis of left upper abdominal pain and findings on CT scan of thickened colon. Her actual symptoms do not include diarrhea, but rather chronic constipation. She has a complex past medical history including "pancolitis" in 2019 with a colonoscopy showing nonspecific changes. She was evaluated at [facility] at that time and given a diagnosis of "gastroparesis." Supporting evidence to suggest that diagnosis uncertain to me. The patient was also noted to have chronic constipation for which she has been on Linzess, MiraLAX, and other preparations, which have been of little benefit. She recently presented to the hospital with complaints of constipation and left upper abdominal pain and CT scan findings suggesting thickened colon on the left side, but she declined hospitalization. She soon thereafter returned though as her symptoms were significant. She had associated nausea, which she thought was fever and chills. A CT scan performed yesterday showed "descending colitis" and elevated white count to 12,000 was noted. The patient does smoke on a daily basis. She has had no episodes of diarrhea and only occasional blood per rectum. She denies any family history of colon cancer or actual ulcerative colitis or other similar colitis. CURRENT MEDICATIONS: Include: 1. MiraLAX on a daily basis. 2. Cipro. 3. Flagyl. 4. Zofran. 5. Hydrocodone. 6. Metoclopramide. 7. Reglan. PATIENT NAME: TITI TANNER CONSULTATION DATE OF : 69 REPORT #: [id number] PHYSICIAN: ROHIT ROBERTS MD PCP: JAVON PUTNAM DO REPORT IS CONFIDENTIAL AND NOT TO BE RELEASED WITHOUT AUTHORIZATION [facility] [address] [place], [place] [address] Draft LABORATORY DATA: Her admission lab study showed a white count of 12.3, platelets of 355,000. Normal creatinine. REVIEW OF SYSTEMS: She denies any shortness of breath or chest pain. She has had no dysphagia. She has had no hematemesis. PHYSICAL EXAMINATION: GENERAL: This is a pleasant white woman, who does not look systemically toxic in any way. She has a fair number of skin wrinkles that are typical of smoking at this age. NECK: Trachea is midline. CHEST: Shows normal respiratory excursion. HEART: Pulse is regular. ABDOMEN: Soft and only mildly tender in the left upper quadrant. There is no evidence of ascites. EXTREMITIES: Show no clubbing, cyanosis, or edema. Pulse exam was not undertaken at this time. I have reviewed her lab studies as well as her CT scan findings and other data noted in the electronic health record. It appears that she has thickening of the left colon. I wonder somewhat if she may have had ischemic colitis in the past, which has now manifested as chronic thickening. The natural history of ischemic colitis can include progressive fibrosis and manifestation of constipation, abdominal pain, and so on. She does not have typical colitis in which manifestation would be diarrhea, blood per rectum, etc. It is mysterious that she does have gastroparesis; she does not have diabetes and although she may well have gastroparesis, I am not sure what data went into that diagnosis, specifically whether or not she had a solid food emptying study or not. As requested by Dr. Soares, I would certainly concur with a colonoscopy to be performed to better characterize the mucosal findings of the left colon and to assess for relative immobility, stricture or even obstructive-type findings given her current symptoms. I discussed with her the risks of bleeding, infection, and perforation related to colonoscopy. She understands and wished to proceed. Rohit Roberts MD PATIENT NAME: TITI TANNER CONSULTATION DATE OF : 69 REPORT #: [id number] PHYSICIAN: ROHIT ROBERTS MD PCP: JAVON PUTNAM DO REPORT IS CONFIDENTIAL AND NOT TO BE RELEASED WITHOUT AUTHORIZATION [address] [address] Draft HARSHIL/JYOTI /[id number] cc: MD Javon Leggett DO Copies: BENJIE SOARES MD, ARIAN DO ~ PATIENT NAME: TITI TANNER CONSULTATION DATE OF : 69 REPORT #: [id number] PHYSICIAN: ROHIT ROBERTS MD PCP: JAVON PUTNAM DO REPORT IS CONFIDENTIAL AND NOT TO BE RELEASED WITHOUT AUTHORIZATION
--- NOTE | 2022-05-08 12:10 | PATH ---
[facility] [address] [place], [place] [address] Signed SPECIMEN(S): A SPLENIC FLEXURE BIOPSY SPECIMEN(S): B LEFT COLON BIOPSY SPECIMEN(S): C SIGMOID BIOPSY SPECIMEN(S): D RECTAL BIOPSY SPECIMEN SOURCE: A. SPLENIC FLEXURE BIOPSY B. LEFT COLON BIOPSY C. SIGMOID BIOPSY D. RECTAL BIOPSY CLINICAL HISTORY: Abdominal pain, chronic constipation and gastroparesis, colitis. Post: Chronic inflammation, left colon. FINAL PATHOLOGIC DIAGNOSIS: A. Splenic flexure biopsy: - Benign colonic mucosa; negative for pathologic inflammation. B. Left colon biopsy: - Benign colonic mucosa; negative for pathologic inflammation. C. Sigmoid biopsy: - Benign colonic mucosa; negative for pathologic inflammation. D. Rectal biopsy: - Benign colonic mucosa; negative for pathologic inflammation. JVR:caw:[id number] MICROSCOPIC EXAMINATION: Histologic sections of all submitted blocks are examined by light microscopy. These findings, together with the gross examination, support the pathologic diagnosis. GROSS DESCRIPTION: Four specimens are received in four containers, labeled "BD." A. The specimen, labeled "BD, splenic flexure biopsy," is received in formalin and consists of two ayoub soft tissue fragments that measure 0.1-0.2 cm in greatest dimension. The specimen is entirely submitted in cassette (A1). B. The specimen, labeled "BD, left colon biopsy," is received in formalin and consists of three ayoub soft tissue fragments that measure 0.1 cm in greatest dimension. The specimen is entirely submitted in cassette (B1). PATIENT NAME: TITI TANNER PATHOLOGY DATE OF : 69 REPORT #: [id number] PHYSICIAN: BARBARA MARES PCP: SACHI PUTNAM DO REPORT IS CONFIDENTIAL AND NOT TO BE RELEASED WITHOUT AUTHORIZATION [facility] [address] [place], [place] [address] Signed C. The specimen, labeled "BD, sigmoid colon biopsy," is received in formalin and consists of two ayoub soft tissue fragments that measure 0.1 cm in greatest dimension. The specimen is entirely submitted in cassette (C1). D. The specimen, labeled "BD, rectum biopsy," is received in formalin and consists of two ayoub soft tissue fragments that measure 0.2 cm in greatest dimension. The specimen is entirely submitted in cassette (D1). JS (under the direct supervision of a pathologist) The Gross Description was prepared using a voice recognition system. The report was reviewed for accuracy; however, sound-alike word errors, addition and/or deletions may occur. If there is any question about this report, please contact Client Services. PERFORMING LABORATORY: The technical component was performed by [facility], [address] [place] [id number] (CLIA# [id number]). Professional interpretation was performed by [facility] - [facility], [address] [place] [id number] (CLIA#: [id number]). Diagnostician: Omer Madera MD Pathologist Electronically Signed 05/08/2022 Copies: ~ PATIENT NAME: TITI TANNER PATHOLOGY DATE OF : 69 REPORT #: [id number] PHYSICIAN: BARBARA PATHOLOGY PCP: SACHI PUTNAM DO REPORT IS CONFIDENTIAL AND NOT TO BE RELEASED WITHOUT AUTHORIZATION
[2022-05-08] MEDS ORDERED: NICOTINE PATCH1 EACH TD (15:00)
[2022-05-08] MEDS ORDERED: METOCLOPRAMIDE H5 MG PO (15:01)
--- NOTE | 2022-05-09 13:04 | OR ---
[facility] [address] [place], [place] [address] Signed DATE OF OPERATION: 05/06/2022 SURGEON: Rohit Roberts MD PREOPERATIVE DIAGNOSES: 1. Chronic constipation and CT scan findings of "left-sided colitis.". 2. Distant history of pancolitis with subsequent colonoscopy showing nonspecific changes. 3. Said to have colonic inertia, final diagnosis uncertain. 4. Said to have gastroparesis, uncertain diagnosis. POSTOPERATIVE DIAGNOSIS: Generally normal-appearing colon except for mild chronic scarring of left colon and sigmoid. PROCEDURE: Total colonoscopy to cecum with biopsies. ANESTHESIA: Intravenous sedation, demerol 100 mg and Versed 5 mg. INDICATIONS: This 56-year-old white woman is admitted by Dr. Soares. She is a patient of Dr. Putnam. She said to have longstanding history of possible colonic inertia (chronic constipation). 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 Soares. She has had no diarrhea or blood per rectum. Her evaluation in the emergency room on April 30, 2022, included a CT scan, which showed a "left-sided colitis." This was meant a thickened colon, though she had no clinical evidence of the same. She was admitted with the finding of leukocytosis of 12,000. I have been requested by Dr. Soares to evaluate the patient as well as to perform colonoscopy. She is said to have gastroparesis, for which she is taking no specific medicine currently. She has been on Linzess and others for presumed chronic constipation. She is admitted at this time to undergo colonoscopy to better characterize the "colitis" and finding of CT scan. She is mindful of the risk of bleeding, infection, and perforation. FINDINGS: The prep was good. Complete colonoscopy was undertaken of the cecum. Passage to the left colon and splenic flexure area was challenging. There was no specific acute Electronically Signed By: ROHIT ROBERTS MD 05/09/22 1304 PATIENT NAME: TITI TANNER OPERATIVE REPORT DATE OF : 69 REPORT #: [id number] PHYSICIAN: ROHIT ROBERTS MD PCP: JAVON PUTNAM DO REPORT IS CONFIDENTIAL AND NOT TO BE RELEASED WITHOUT AUTHORIZATION [facility] [address] [place], [place] [address] Signed colitis. There may be chronic colitis of the mucosa as manifested by thickening and paucity of vascular markings. There is no strict findings stricture and certainly no diverticulosis. Biopsies were taken throughout the colon. DESCRIPTION OF PROCEDURE: The patient was brought to the endoscopy suite and placed in lateral decubitus position given intravenous sedation with Demerol and Versed. Notably, the patient describes an "allergy" to fentanyl, which includes making my skin "crawl" as well as other symptoms. Additionally, she describes allergy to morphine. After satisfactory intravenous sedation, digital rectal examination was performed. An Olympus video colonoscope was passed into the rectum and manipulated into the rectosigmoid, which was somewhat tortuous. Passage to these areas was challenging overall. The colon felt somewhat stiff, it was admitted. The scope was ultimately advanced beyond the splenic flexure, which notably did have a considerable amount of visualization of transilluminated spleen more so than usual by far. The scope was then advanced further ultimately to the cecum. The ileocecal valve and appendiceal orifice were well identified. The scope was withdrawn from that point after biopsies were obtained of the cecum and right colon. Further withdrawal through the transverse colon showed it to be normal. Biopsies were then taken of the area of the splenic flexure, subsequently the left colon, sigmoid, and rectum. There was no specific acute colitis by any means. There may be chronic inflammation that was relatively subclinical and whether or not there is some scarring from prior episode of pancolitis is uncertain. The scope was removed and the patient was taken to the recovery room in good condition. CONCLUDING DIAGNOSES: 1. Presumed delayed colonic transit time. I would verify this with a Sitz marker test. As she has been unresponsive to most interventions and constipation appears to be an almost disabling situation for her, consideration could be made for subtotal colectomy if she does in fact have significant colonic inertia. 2. Presumed gastroparesis; method of her diagnosis is uncertain to me. Almost certainly, she had a solid food emptying test. I would recommend this to be considered at some point as she currently has bloating and uncertainty as to the etiology of that. Rohit Roberts MD Electronically Signed By: ROHIT ROBERTS MD 05/09/22 1304 PATIENT NAME: TITI TANNER OPERATIVE REPORT DATE OF : 69 REPORT #: [id number] PHYSICIAN: ROHIT ROBERTS MD PCP: JAVON PUTNAM DO REPORT IS CONFIDENTIAL AND NOT TO BE RELEASED WITHOUT AUTHORIZATION [address] [address] Signed /MODL /[id number] cc: MD Javon Leggett DO Copies: BENJIE SOARES MD, ARIAN DO ~ Electronically Signed By: ROHIT ROBERTS MD 05/09/22 1304 PATIENT NAME: TITI TANNER OPERATIVE REPORT DATE OF : 69 REPORT #: [id number] PHYSICIAN: ROHIT ROBERTS MD PCP: JAVON PUTNAM DO REPORT IS CONFIDENTIAL AND NOT TO BE RELEASED WITHOUT AUTHORIZATION
== END 2022-05-08 15:35 | disposition home or self-care (01) | DRG 392 ==
LOC: ED 16:25 → MS 19:07
PROVIDERS: Surgery; ADMIT Internal Medicine; ATTEND Internal Medicine
PROC: 0DBG8ZX Excision of Left Large Intestine, Via Natural or Artificial Opening Endoscopic, Diagnostic (ICD-10-PCS; 2022-05-06)
PROC: 0DBL8ZX Excision of Transverse Colon, Via Natural or Artificial Opening Endoscopic, Diagnostic (ICD-10-PCS; 2022-05-06)
PROC: 0DBN8ZX Excision of Sigmoid Colon, Via Natural or Artificial Opening Endoscopic, Diagnostic (ICD-10-PCS; 2022-05-06)
PROC: 0DBP8ZX Excision of Rectum, Via Natural or Artificial Opening Endoscopic, Diagnostic (ICD-10-PCS; 2022-05-06)
PROC: 0DBH8ZX Excision of Cecum, Via Natural or Artificial Opening Endoscopic, Diagnostic (ICD-10-PCS; principal; 2022-05-06 15:15)
DX: K31.84 Gastroparesis (principal); K59.01 Slow transit constipation; F17.210 Nicotine dependence, cigarettes, uncomplicated; Z90.49 Acquired absence of other specified parts of digestive tract; Z90.710 Acquired absence of both cervix and uterus; Z98.51 Tubal ligation status; Z88.6 Allergy status to analgesic agent; Z88.8 Allergy status to other drugs, medicaments and biological substances; Z79.2 Long term (current) use of antibiotics; Z79.899 Other long term (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
CPT/HCPCS: 74018; 78264; 99153; A9270; A9541; G0500; J0295; J1170; J1650; J1790; J1885; J2250; J2405; J2550; J2765; J7121

== ENCOUNTER → 2022-05-04 | Emergency (ER) | payer OTHER ==
[~2022-05-04] VITALS: Ht 157.5 cm; Wt 64.7 kg
[~2022-05-04] MED LIST changes: +CIPRO500 MG PO; +HYDROCODON-ACE1 EA10 PO; +METRONIDAZOLE500 MG PO
== END ==
LOC: ED 11:11
DX: K52.9 Noninfective gastroenteritis and colitis, unspecified (principal); F17.200 Nicotine dependence, unspecified, uncomplicated; Z88.8 Allergy status to other drugs, medicaments and biological substances; Z88.5 Allergy status to narcotic agent; Z79.899 Other long term (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
CPT/HCPCS: 36415; 74177; 80053; 83690; 85025; 96375; 99284-25; J1170; J2405; Q9967; U0003

== ENCOUNTER 2022-05-19 16:04 | Emergency (ER) | payer OTHER ==
[~2022-05-19] VITALS: Ht 157.5 cm; Wt 63.0 kg
[~2022-05-19 16:04] MED LIST changes: +METOCLOPRAMIDE H5 MG PO; +NICOTINE PATCH1 EACH TD
--- OUTSIDE RECORDS SUMMARY | 2022-05-19 16:06 | XMS ---
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 Care History Medical/Surgical 12/12/2021 [facility] Patient came into ED after Clinic hours. Last seen in Clinic (walk in) on 06/2021 by Hortencia Nath. 10/02/2021 [facility] No follow up scheduled with PCP. 10/01/2021 [facility] - Patient is currently established with [facility]. If patient is seen in the ED during business hours. Please contact CHWs at [facility]. Care Recommendation: If this patient [...] care. E.D. VISIT COUNT (12 MO.) [address] [facility] 8 [facility]. TOTAL 9 NOTE: Visits indicate total known visits. ED/UCC VISIT TRACKING (12 MO.) 2022 16:[address] [facility] [place] TYPE: Emergency COMPLAINT: - ABD PAIN 05/04/2022 16:[address] [facility] [facility] [place]: Emergency COMPLAINT: - ABD PAIN 05/04/2022 11:11 [facility] [place]: Emergency COMPLAINT: - ABD PAIN,VOMITING DIAGNOSES: - Nicotine dependence, unspecified, uncomplicated - Allergy status to other drugs, medicaments and biological substances - Nausea with vomiting, unspecified - Other nursing home (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 - Noninfective gastroenteritis and colitis, unspecified - Allergy status to narcotic agent 04/30/2022 19:42 [facility] [place] [facility] [place] TYPE: Emergency COMPLAINT: - ABDOMINAL PAIN DIAGNOSES: - Nicotine dependence, unspecified, uncomplicated - Left upper quadrant pain - Allergy status to narcotic agent - Noninfective gastroenteritis and colitis, unspecified - Allergy status to other drugs, medicaments and biological substances 12/10/2021 02:35 [facility] [place] TYPE: Emergency COMPLAINT: - VOMITING DIAGNOSES: - Allergy status to other drugs, medicaments and biological substances - Vomiting, unspecified - Allergy status to narcotic agent - 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 - Noninfective gastroenteritis and colitis, unspecified - Gastroparesis - 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us - Nicotine dependence, unspecified, uncomplicated 09/30/2021 04:21 [facility] [place] TYPE: Emergency COMPLAINT: - N/V DIAGNOSES: - Other nursing home (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 - Allergy status to other drugs, medicaments and biological substances - Gastroparesis - Nicotine dependence, unspecified, uncomplicated - Allergy status to narcotic agent - Nausea with vomiting, unspecified 09/03/2021 15:38 [facility] [place] TYPE: Emergency COMPLAINT: - CONSTIPATION DIAGNOSES: - Allergy status to narcotic agent - Other nursing home (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 - Nicotine dependence, unspecified, uncomplicated - Constipation, unspecified - Allergy status to other drugs, medicaments and biological substances 07/30/2021 15:11 [facility] [place] TYPE: Emergency DIAGNOSES: - Abdominal Pain - vomiting, fever, abd issues - Emesis - Noninfective gastroenteritis and colitis, unspecified 07/30/2021 12:57 [facility] TYPE: Emergency COMPLAINT: - VOMITING, FEVER, COUGH, RUNNY NOSE, BODY PAIN INPATIENT VISIT TRACKING (12 MO.) 05/04/2022 19:07 [facility] [place] TYPE: Medical Surgical COMPLAINT: - COLITIS DIAGNOSES: - 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 - Nicotine dependence, cigarettes, uncomplicated - Allergy status to analgesic agent - Acquired absence of both cervix and uterus - Gastroparesis - Allergy status to other drugs, medicaments and biological substances - Nicotine dependence, cigarettes, uncomplicated - Gastroparesis - Allergy status to analgesic agent - Slow transit constipation - Acquired absence of both cervix and uterus - Tubal ligation status - Allergy status to other drugs, medicaments and biological substances - Noninfective gastroenteritis and colitis, unspecified - Slow transit constipation - Acquired absence of other specified parts of digestive tract - Other nursing home (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 - Tubal ligation status - Other nursing home (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 - Acquired absence of other specified parts of digestive tract - snf (current) use of antibiotics [email or web address]
== END 2022-05-19 18:58 | disposition home or self-care (01) ==
LOC: ED 16:04
DX: K31.84 Gastroparesis (principal); F17.200 Nicotine dependence, unspecified, uncomplicated; Z88.5 Allergy status to narcotic agent; Z88.8 Allergy status to other drugs, medicaments and biological substances; Z79.899 Other long term (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
CPT/HCPCS: 36415; 80053; 81001; 83690; 85025; J1170; J2405; J2765; J7030

== ENCOUNTER 2022-06-25 10:51 | Emergency (ER) | payer SELFPAY ==
[~2022-06-25] VITALS: Ht 157.5 cm; Wt 61.8 kg
--- OUTSIDE RECORDS SUMMARY | 2022-06-25 10:55 | XMS ---
PreManage Notification: TITI TANNER Security Senior Client Advisor Events 3 event(s) in the past 18 months Most recent security events: Elopement at [facility] 05/04/2022 11:11 - Patient eloped before treatment completed. - Patient with suicidal and/or homicidal ideations eloped. - Patient eloped with IV in place. Details: PATIENT LEFT AMA Elopement at [facility] 07/30/2021 12:57 - Other Details: PATIENT LWBS Elopement at [facility] 04/21/2021 14:41 - Other Details: PATIENT LWBS CRITERIA MET - [facility] - Has Care Guidelines - [facility] ALEJANDRA MENA Nurse Practitioner: Family 08/05/2018-Current PHONE: Unknown SACHI PUTNAM Internal Medicine 03/19/2021-Current PHONE: Unknown Rodriguez has no Care Guidelines for this patient. Care History Medical/Surgical 12/12/2021 [facility] Patient came into ED after Clinic hours. Last seen in Clinic (walk in) on 06/2021 by Hortencia Nath. 10/02/2021 [facility] No follow up scheduled with PCP. 10/01/2021 [facility] - Patient is currently established with [facility]. If patient is seen in the ED during business hours. Please contact CHWs at [facility]. Care Recommendation: If this patient [...] care. E.D. VISIT COUNT (12 MO.) 1 [facility] 9 [facility]. TOTAL 10 NOTE: Visits indicate total known visits. ED/UCC VISIT TRACKING (12 MO.) 06/25/2022 10:52 [facility] [place] TYPE: Emergency COMPLAINT: - VOMITING 2022 16:05 [facility] [place] TYPE: Emergency COMPLAINT: - ABD PAIN DIAGNOSES: - Allergy status to other drugs, medicaments and biological substances - Other meterman (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 - Nicotine dependence, unspecified, uncomplicated - Gastroparesis - Allergy status to narcotic agent - Unspecified abdominal pain 05/04/2022 16:25 [facility] [place] TYPE: Emergency COMPLAINT: - ABD PAIN 05/04/2022 11:11 [facility] [place] TYPE: Emergency COMPLAINT: - ABD PAIN,VOMITING DIAGNOSES: - Nicotine dependence, unspecified, uncomplicated - Allergy status to other drugs, medicaments and biological substances - Nausea with vomiting, unspecified - Other retirement (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 - Noninfective gastroenteritis and colitis, unspecified - Allergy status to narcotic agent 04/30/2022 19:42 [facility] [place] TYPE: Emergency COMPLAINT: - [...] Allergy status to narcotic agent - Other retirement (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 - Noninfective gastroenteritis and colitis, unspecified - Gastroparesis - 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us - Nicotine dependence, unspecified, uncomplicated 09/30/2021 04:21 [facility] [place] TYPE: Emergency COMPLAINT: - N/V DIAGNOSES: - Other retirement (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 - Allergy status to other drugs, medicaments and biological substances - Gastroparesis - Nicotine dependence, unspecified, uncomplicated - Allergy status to narcotic agent - Nausea with vomiting, unspecified 09/03/2021 15:38 [facility] [place] TYPE: Emergency COMPLAINT: - CONSTIPATION DIAGNOSES: - Allergy status to narcotic agent - Other meterman (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 - Nicotine dependence, unspecified, uncomplicated - Constipation, unspecified - Allergy status to other drugs, medicaments and biological substances 07/30/2021 15:11 [facility] [place] TYPE: Emergency DIAGNOSES: - Abdominal Pain - vomiting, fever, abd issues - Emesis - Noninfective gastroenteritis and colitis, unspecified 07/30/2021 12:57 [facility] [place] TYPE: Emergency COMPLAINT: - VOMITING, FEVER, COUGH, RUNNY NOSE, BODY PAIN INPATIENT VISIT TRACKING (12 MO.) 05/04/2022 19:07 [facility] [place] TYPE: Medical Surgical COMPLAINT: - COLITIS DIAGNOSES: - Allergy status to analgesic agent - [...] specified parts of digestive tract - Other retirement (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 - Tubal ligation status - Other retirement (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 - Acquired absence of other specified parts of digestive tract - meterman (current) use of antibiotics - meterman (current) use of antibiotics - Nicotine dependence, cigarettes, uncomplicated [email or web address]
[2022-06-25] MEDS ORDERED: GABAPENTIN100 MG PO (11:05)
[2022-06-25] MEDS ORDERED: ONDANSETRON ODT8 MG PO (11:05)
== END 2022-06-25 14:12 | disposition home or self-care (01) ==
LOC: ED 10:51
DX: K31.84 Gastroparesis (principal); F17.200 Nicotine dependence, unspecified, uncomplicated; Z88.8 Allergy status to other drugs, medicaments and biological substances; Z79.899 Other long term (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
CPT/HCPCS: 36415; 80053; 81001; 83690; 85025; 96361; 96374; 96375; 99284-25; 99406; J1790; J2270; J7030

== ENCOUNTER 2022-07-10 12:37 | Emergency (ER) | payer OTHER ==
[~2022-07-10] VITALS: Ht 157.5 cm; Wt 61.8 kg
[~2022-07-10 12:37] MED LIST changes: +GABAPENTIN100 MG PO
--- OUTSIDE RECORDS SUMMARY | 2022-07-10 12:40 | XMS ---
PreManage Notification: TITI TANNER Security Instrumentation And Controls Technician Events 3 event(s) in the past 18 months Most recent security events: Elopement at [facility] 05/04/2022 11:11 - Patient eloped before treatment completed. - Patient with suicidal and/or homicidal ideations eloped. - Patient eloped with IV in place. Details: PATIENT LEFT AMA Elopement at [facility] 07/30/2021 12:57 - Other Details: PATIENT LWBS Elopement at [facility] 04/21/2021 14:41 - Other Details: PATIENT LWBS CRITERIA MET - PDMP - Group Notification - [facility] - 2 Visits in 30 Days - [facility] - Has Care Guidelines - 6 ED Visits in 6 Months CARE PROVIDERS ALEJANDRA MENA Nurse Practitioner: 08/05/2018-Current PHONE: Unknown SACHI PUTNAM Internal Medicine 03/19/2021-Current PHONE: Unknown Rodriguez has no Care Guidelines for this patient. Care History Medical/Surgical 12/12/2021 [facility] Patient came into ED after Clinic hours. Last seen in Clinic (walk in) on 06/2021 by Hortencia Nath. 10/02/2021 [facility] No follow up scheduled with PCP. 10/01/2021 [facility] - Patient is currently established with [facility]. If patient is seen in the ED during business hours. Please contact CHWs at [facility]. Care Recommendation: If this patient has had [...] care. E.D. VISIT COUNT (12 MO.) [address] [facility] 10 [facility]. TOTAL 11 NOTE: Visits indicate total known visits. ED/UCC VISIT TRACKING (12 MO.) 07/10/2022 12:37 [facility] [place] TYPE: Emergency COMPLAINT: - VOMITING 06/25/2022 10:52 [facility] [place] TYPE: Emergency COMPLAINT: - VOMITING DIAGNOSES: - Unspecified abdominal pain - Other oysterman (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 - Nicotine dependence, unspecified, uncomplicated - Gastroparesis - Allergy status to other drugs, medicaments and biological substances 2022 16:05 [facility] [place] TYPE: Emergency COMPLAINT: - ABD PAIN DIAGNOSES: - Unspecified abdominal pain - Allergy status to other drugs, medicaments and biological substances - Other oysterman (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 - Nicotine dependence, unspecified, uncomplicated - Gastroparesis - Allergy status to narcotic agent 05/04/2022 16:25 [facility] [place] TYPE: Emergency COMPLAINT: - ABD PAIN 05/04/2022 11:11 [facility] [place] TYPE: Emergency COMPLAINT: - ABD PAIN,VOMITING DIAGNOSES: - Allergy status to narcotic agent - Nicotine dependence, unspecified, uncomplicated - Allergy status to other drugs, medicaments and biological substances - Nausea with vomiting, unspecified - Other nursing home (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 - Noninfective gastroenteritis and colitis, unspecified 04/30/2022 19:42 [facility] [place] TYPE: Emergency COMPLAINT: - ABDOMINAL PAIN DIAGNOSES: - Allergy status to other drugs, medicaments and biological substances - Nicotine dependence, unspecified, uncomplicated - Left upper quadrant pain - Allergy status to narcotic agent - Noninfective gastroenteritis and colitis, unspecified 12/10/2021 02:35 [facility] [place] TYPE: Emergency COMPLAINT: - VOMITING DIAGNOSES: - Nicotine dependence, unspecified, uncomplicated - Allergy status to other drugs, medicaments and biological substances - Vomiting, unspecified - Allergy status to narcotic agent - Other nursing home (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 - Noninfective gastroenteritis and colitis, unspecified - Gastroparesis - 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us 09/30/2021 04:21 [facility] [place] TYPE: Emergency COMPLAINT: - N/V DIAGNOSES: - Nausea with vomiting, unspecified - Other nursing home (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 - Allergy status to other drugs, medicaments and biological substances - Gastroparesis - Nicotine dependence, unspecified, uncomplicated - Allergy status to narcotic agent 09/03/2021 15:[address] [facility] [address] [facility] TYPE: Emergency COMPLAINT: - CONSTIPATION DIAGNOSES: - Allergy status to other drugs, medicaments and biological substances - Allergy status to narcotic agent - Other nursing home (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 - Nicotine dependence, unspecified, uncomplicated - Constipation, unspecified 07/30/2021 15:11 [facility] [place] TYPE: Emergency DIAGNOSES: - Noninfective gastroenteritis and colitis, unspecified - Abdominal Pain - vomiting, fever, abd issues - Emesis 07/30/2021 12:57 [facility] [place] TYPE: Emergency COMPLAINT: - VOMITING, FEVER, COUGH, RUNNY NOSE, BODY PAIN INPATIENT VISIT TRACKING (12 MO.) 05/04/2022 19:07 [facility] [place] TYPE: Medical Surgical COMPLAINT: - COLITIS DIAGNOSES: - Other oysterman (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 - Acquired absence of other specified parts of digestive tract - nursing home (current) use of antibiotics - exterminator helper (current) use of antibiotics - Nicotine dependence, [...] (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 - Tubal ligation status [email or web address]
== END 2022-07-10 14:03 | disposition home or self-care (01) ==
LOC: ED 12:37
DX: K58.9 Irritable bowel syndrome, unspecified (principal); K31.84 Gastroparesis; F17.200 Nicotine dependence, unspecified, uncomplicated; Z88.8 Allergy status to other drugs, medicaments and biological substances
CPT/HCPCS: 36415; 80053; 81001; 83690; 85025; 96374; 96375; 99284-25; J1790; J2060; J7030

== ENCOUNTER 2023-01-26 14:51 | Emergency (ER) | payer OTHER ==
[~2023-01-26] VITALS: Ht 157.5 cm; Wt 63.3 kg
[~2023-01-26 14:51] MED LIST changes: +ONDANSETRON HCL4 MG PO; +VALACYCLOVIR1000 MG PO
--- OUTSIDE RECORDS SUMMARY | 2023-01-26 14:55 | XMS ---
PreManage Notification: TITI TANNER Security Service Porter Events 2 event(s) in the past 18 months Most recent security events: Elopement at [facility] 05/04/2022 11:11 - Patient eloped before treatment completed. - Patient with suicidal and/or homicidal ideations eloped. - Patient eloped with IV in place. Details: PATIENT LEFT AMA Elopement at [facility] 07/30/2021 12:57 - Other Details: PATIENT LWBS CRITERIA MET - PDMP - [facility] - 2 Visits in 30 Days - Group Notification - [facility] - Has Care Guidelines CARE PROVIDERS -[place]- Dentist: Reinforcing Iron Worker Helper Replaced By [facility] PHONE: [phone] ALEJANDRA MENA Nurse Practitioner: 08/05/2018-Current PHONE: Unknown SACHI PUTNAM Internal Medicine 03/19/2021-Current PHONE: Unknown Rodriguez has no Care Guidelines for this patient. Care History Medical/Surgical 12/12/2021 [facility] Patient came into ED after Clinic hours. Last seen in Clinic (walk in) on 06/2021 by Hortencia Nath. 10/02/2021 [facility] No follow up scheduled with PCP. 10/01/2021 [facility] - Patient is currently established with [facility]. If patient is seen in the ED during business hours. Please contact CHWs at [facility]. Care Recommendation: If this patient has [...] care. E.D. VISIT COUNT (12 MO.) 9 [facility]. TOTAL 9 NOTE: Visits indicate total known visits. ED/UCC VISIT TRACKING (12 MO.) 01/26/2023 14:52 [facility] [address] [place] TYPE: Emergency COMPLAINT: - VOMITING 01/24/2023 14:48 [facility] [place] TYPE: Emergency COMPLAINT: - VOMITING 08/05/2022 18:43 [facility] [place] TYPE: Emergency COMPLAINT: - POSS SHINGLES DIAGNOSES: - Allergy status to narcotic agent - Allergy status to other drugs, medicaments and biological substances - Nicotine dependence, unspecified, uncomplicated - Rash and other nonspecific skin eruption - Zoster without complications 07/10/2022 12:37 [facility] TYPE: Emergency COMPLAINT: - VOMITING DIAGNOSES: - Allergy status to other drugs, medicaments and biological substances - Constipation, unspecified - Gastroparesis - Irritable bowel syndrome without diarrhea - Nicotine dependence, unspecified, uncomplicated 06/25/2022 10:52 [facility] [place] TYPE: Emergency COMPLAINT: - VOMITING DIAGNOSES: - Allergy status to other drugs, medicaments and biological substances - Gastroparesis - Nicotine dependence, unspecified, uncomplicated - Other microstrategy reports developer (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 - Unspecified abdominal pain 2022 16:05 [facility] [place] TYPE: Emergency COMPLAINT: - ABD PAIN DIAGNOSES: - Allergy status to narcotic agent - Allergy status to other drugs, medicaments and biological substances - Gastroparesis - Nicotine dependence, unspecified, uncomplicated - Other [place] 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 - Unspecified abdominal pain 05/04/2022 16:25 [facility] [place] TYPE: Emergency COMPLAINT: - ABD PAIN 05/04/2022 11:11 [facility] [place] TYPE: Emergency COMPLAINT: - ABD PAIN,VOMITING DIAGNOSES: - Allergy status to narcotic agent - Allergy status to other drugs, medicaments and biological substances - Nausea with vomiting, unspecified - Nicotine dependence, unspecified, uncomplicated - Noninfective gastroenteritis and colitis, unspecified - Other microstrategy reports developer (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 04/30/2022 19:42 [facility] [place] TYPE: Emergency COMPLAINT: - ABDOMINAL PAIN DIAGNOSES: - Allergy status to narcotic agent - Allergy status to other drugs, medicaments and biological substances - Left upper quadrant pain - Nicotine dependence, unspecified, uncomplicated - Noninfective gastroenteritis and colitis, unspecified INPATIENT VISIT TRACKING (12 MO.) 05/04/2022 19:[address] [facility] [place] TYPE: Medical Surgical COMPLAINT: - COLITIS DIAGNOSES: - Acquired absence of both cervix and uterus - Acquired absence of both cervix and uterus - Acquired absence of other specified parts of digestive tract - Acquired absence of other specified parts of digestive tract - Allergy status to analgesic agent - Allergy status to analgesic agent - Allergy status to other drugs, medicaments and biological substances - Allergy status to other drugs, medicaments and biological substances - Gastroparesis - Gastroparesis - dolly driver (current) use of antibiotics - dolly driver (current) use of antibiotics - Nicotine dependence, cigarettes, uncomplicated - Nicotine dependence, cigarettes, uncomplicated - Noninfective gastroenteritis and colitis, unspecified - Other [place] [facility] 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 - Other [place] [facility] 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 - Slow transit constipation - Slow transit constipation - Tubal ligation status - Tubal ligation status [email or web address]
[2023-01-26 17:48] VITALS: BP 140/81
== END 2023-01-26 17:35 | disposition home or self-care (01) ==
LOC: ED 14:51
DX: R11.15 Cyclical vomiting syndrome unrelated to migraine (principal); F17.200 Nicotine dependence, unspecified, uncomplicated; Z88.5 Allergy status to narcotic agent; Z88.8 Allergy status to other drugs, medicaments and biological substances; Z79.899 Other long term (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
CPT/HCPCS: 36415; 80053; 81001; 83690; 85025; A9270; C9113; J1790; J1885; J2405; J2765; J7121

== ENCOUNTER 2023-01-28 16:10 | Emergency (ER) | payer OTHER ==
[~2023-01-28] VITALS: Ht 157.5 cm; Wt 63.3 kg
--- OUTSIDE RECORDS SUMMARY | 2023-01-28 16:13 | XMS ---
PreManage Notification: TITI TANNER Security Collection Correspondent Events 1 event(s) in the past 18 months Most recent security events: Elopement at [facility] 05/04/2022 11:11 - Patient eloped before treatment completed. - Patient with suicidal and/or homicidal ideations eloped. - Patient eloped with IV in place. Details: PATIENT LEFT AMA CRITERIA MET - [facility] - Has Care Guidelines - PDMP - Group Notification - [facility] - 2 Visits in 30 Days CARE PROVIDERS -[place]- Dentist: Stamp Press Operator [facility] PHONE: [phone] ALEJANDRA MENA Nurse Practitioner: Family 08/05/2018-Current PHONE: Unknown SACHI PUTNAM Internal Medicine 03/19/2021-Current PHONE: Unknown Rodriguez has no Care Guidelines for this patient. Care History Medical/Surgical 12/12/2021 [facility] Patient came into ED after Clinic hours. Last seen in Clinic (walk in) on 06/2021 by Hortencia Nath. 10/02/2021 [facility] No follow up scheduled with PCP. 10/01/2021 [facility] - Patient is currently established with [facility]. If patient is seen in the ED during business hours. Please contact CHWs at [facility]. Care Recommendation: If this patient has [...] providing care. E.D. VISIT COUNT (12 MO.) 10 [facility]. TOTAL 10 NOTE: Visits indicate total known visits. ED/UCC VISIT TRACKING (12 MO.) 01/28/2023 16:11 [facility] [place] TYPE: Emergency COMPLAINT: - VOMITING 01/26/2023 14:52 [facility] [place] TYPE: Emergency COMPLAINT: - VOMITING DIAGNOSES: - Allergy status to narcotic agent - Allergy status to other drugs, medicaments and biological substances - Cyclical vomiting syndrome unrelated to migraine - Nicotine dependence, unspecified, uncomplicated - Other longterm (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 - Vomiting, unspecified 01/24/2023 14:48 [facility] [place] TYPE: Emergency COMPLAINT: - VOMITING DIAGNOSES: - Allergy status to narcotic agent - Allergy status to other drugs, medicaments and biological substances - Nicotine dependence, unspecified, uncomplicated - Other ferry 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 (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 - Vomiting, unspecified 08/05/2022 18:43 [facility] [place] TYPE: Emergency COMPLAINT: - POSS SHINGLES DIAGNOSES: - Allergy status to narcotic agent - Allergy status to other drugs, medicaments and biological substances - Nicotine dependence, unspecified, uncomplicated - Rash and other nonspecific skin eruption - Zoster without complications 07/10/2022 12:37 [facility] [place] TYPE: Emergency COMPLAINT: - [...] - Nicotine dependence, unspecified, uncomplicated - Other longterm (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 - Unspecified abdominal pain 2022 16:05 [facility] [place] TYPE: Emergency COMPLAINT: - ABD PAIN DIAGNOSES: - Allergy status to narcotic agent - Allergy status to other drugs, medicaments and biological substances - Gastroparesis - Nicotine dependence, unspecified, uncomplicated - Other longterm (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 - Unspecified abdominal pain [...] Noninfective gastroenteritis and colitis, unspecified - Other ferry 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 (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 04/30/2022 19:42 [facility] [...] biological substances - Gastroparesis - Gastroparesis - long-term (current) use of antibiotics - ferry 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 (current) use of antibiotics - Nicotine dependence, cigarettes, uncomplicated - Nicotine dependence, cigarettes, uncomplicated - Noninfective gastroenteritis and colitis, unspecified - Other ferry 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 (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 - Other longterm (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 - Slow transit constipation - Slow transit constipation - Tubal ligation status - Tubal ligation status [email or web address]
[2023-01-28 19:00] VITALS: BP 132/82
== END 2023-01-28 19:00 | disposition home or self-care (01) ==
LOC: ED 16:10
DX: K31.84 Gastroparesis (principal); Z88.5 Allergy status to narcotic agent; Z88.8 Allergy status to other drugs, medicaments and biological substances; Z79.899 Other long term (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
CPT/HCPCS: 74018; 80053; 85025; J1790; J7121

== ENCOUNTER 2023-08-17 07:46 | Emergency (ER) | payer OTHER ==
[~2023-08-17] VITALS: Ht 157.5 cm; Wt 63.3 kg
--- OUTSIDE RECORDS SUMMARY | 2023-08-17 07:52 | XMS ---
PreManage Notification: TITI TANNER Security Trade Union Secretary Events 2 event(s) in the past 18 months Most recent security events: Verbal at [facility] 01/28/2023 16:11 - Patient was verbally abusive towards care providers, staff or patient. - Patient verbally threatened care providers, staff or other patients. Elopement at [facility] 05/04/2022 11:11 - Patient eloped before treatment completed. - Patient with suicidal and/or homicidal ideations eloped. - Patient eloped with IV in place. Details: PATIENT LEFT AMA CRITERIA MET - Group Notification CARE PROVIDERS SACHI PUTNAM Internal Medicine 03/19/2021-Current PHONE: Unknown ALEJANDRA MENA Nurse Practitioner: Family 08/05/2018-Current PHONE: Unknown -[place]- Dentist: District Attorney [facility] PHONE: [phone] Rodriguez has no Care Guidelines for this patient. Care History Medical/Surgical 12/12/2021 [facility] Patient came into ED after Clinic hours. Last seen in Clinic (walk in) on 06/2021 by Hortencia Nath. 10/02/2021 [facility] No follow up scheduled with PCP. 10/01/2021 [facility] - Patient is currently established with [facility]. If patient is seen in the ED during business hours. Please contact CHWs at [facility]. Care Recommendation: If this patient has [...] providing care. E.D. VISIT COUNT (12 MO.) 4 [facility]. TOTAL 4 NOTE: Visits indicate total known visits. ED/UCC VISIT TRACKING (12 MO.) 08/17/2023 07:46 [facility] [place] TYPE: Emergency COMPLAINT: - RECTAL BLEEDING 01/28/2023 16:11 [facility] [place] TYPE: Emergency COMPLAINT: - VOMITING DIAGNOSES: - Allergy status to narcotic agent - Allergy status to other drugs, medicaments and biological substances - Gastroparesis - Gastroparesis - Other terminal makeup operator (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 - Unspecified abdominal pain 01/26/2023 14:52 [facility] [place] TYPE: Emergency COMPLAINT: - VOMITING DIAGNOSES: - Allergy status to narcotic agent - Allergy status to other drugs, medicaments and biological substances - Cyclical vomiting syndrome unrelated to migraine - Nicotine dependence, unspecified, uncomplicated - Other terminal makeup operator (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 - Vomiting, unspecified 01/24/2023 14:[address] [facility] [place] TYPE: Emergency COMPLAINT: - VOMITING DIAGNOSES: - Allergy status to narcotic agent - Allergy status to other drugs, medicaments and biological substances - Nicotine dependence, unspecified, uncomplicated - Other terminal makeup operator (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 - Vomiting, unspecified INPATIENT VISIT TRACKING (12 MO.) No inpatient visits to display in this time frame [email or web address]
[2023-08-17 08:13] VITALS: BP 112/74
== END 2023-08-17 08:16 | disposition home or self-care (01) ==
LOC: ED 07:46
DX: K62.5 Hemorrhage of anus and rectum (principal); F17.200 Nicotine dependence, unspecified, uncomplicated; Z88.5 Allergy status to narcotic agent; Z88.8 Allergy status to other drugs, medicaments and biological substances; Z79.899 Other long term (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
CPT/HCPCS: 99283

== ENCOUNTER 2023-10-06 09:07 | Emergency (ER) | payer OTHER ==
[~2023-10-06] VITALS: Ht 157.5 cm; Wt 66.1 kg
[2023-10-06 09:34] LABS: BASOPHILS 1.2 % (0-2); EOSINOPHILS 1.9 % (0-6); HEMATOCRIT 41.6 % (35.0-50.0); HEMOGLOBIN 14.3 g/dL (12.0-18.0); LYMPHOCYTES 32.8 % (24-44); MCH 30.9 (27-36); MCHC 34.4 g/dl (30-36); MCV 89.9 fl (81-99); MONOCYTES 6.6 % (0-12); NEUTROPHILS 57.5 % (39-80); PLATELET COUNT 344 K/uL (140-440); RBC 4.63 M/ul (4.3-5.7); RDW 13.9 (10.5-15.0)
[2023-10-06 09:47] LABS: ALBUMIN 3.9 g/dL (3.4-5.0); BILIRUBIN, TOTAL 0.5 ng/dL (0.2-1.0); BUN/CREATININE RATIO 19.35 (6.0-28.6); CALCIUM 9.3 mg/dL (8.5-10.1); CREATININE, SERUM 0.93 mg/dL (0.55-1.02); PROTEIN, TOTAL 7.8 g/dL (6.4-8.2)
[2023-10-06] MEDS ORDERED: REGLAN10 MG PO (11:28)
[2023-10-06 11:36] VITALS: BP 112/78
== END 2023-10-06 11:34 | disposition home or self-care (01) ==
LOC: ED 09:07
PROVIDERS: Emergency Medicine
DX: K59.00 Constipation, unspecified (principal); K31.84 Gastroparesis; F17.200 Nicotine dependence, unspecified, uncomplicated; Z88.5 Allergy status to narcotic agent; Z88.8 Allergy status to other drugs, medicaments and biological substances; Z79.899 Other long term (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
CPT/HCPCS: 36415; 80053; 85025; 96374; 96375; 99284-25; J2405; J2765

== ENCOUNTER 2023-10-22 14:43 | Emergency (ER) | payer OTHER ==
[~2023-10-22] VITALS: Ht 157.5 cm; Wt 63.5 kg
--- NOTE | ~2023-10-22 | EKG ---
[facility] [address] [facility] [place], [place] [address] Draft EK completed, results pending confirmation PATIENT NAME: TITI TANNER Electrocardiogram DATE OF : 69 PHYSICIAN: PRELIMINARY REPORT #: [id number] REPORT IS CONFIDENTIAL AND NOT TO BE RELEASED WITHOUT AUTHORIZATION
[2023-10-22 15:12] LABS: BASOPHILS 0.6 % (0-2); EOSINOPHILS 0.7 % (0-6); HEMATOCRIT 44.3 % (35.0-50.0); HEMOGLOBIN 14.8 g/dL (12.0-18.0); MCH 30.5 (27-36); MCHC 33.5 g/dl (30-36); MCV 91.1 fl (81-99); MONOCYTES 4.3 % (0-12); NEUTROPHILS 69.4 % (39-80); PLATELET COUNT 322 K/uL (140-440); RBC 4.86 M/ul (4.3-5.7); RDW 14.1 (10.5-15.0)
[2023-10-22 15:30] LABS: ALBUMIN 4.2 g/dL (3.4-5.0); ALBUMIN/GLOBULIN RATIO 1.08 (1.1-2.4); ALKALINE PHOSPHATASE 80 U/L (46-116); ALT (SGPT) 14 U/L (14-59); ANION GAP 18.8 (7-21); AST (SGOT) 14 U/L (15-37); BILIRUBIN, TOTAL 0.6 ng/dL (0.2-1.0); BUN/CREATININE RATIO 17.44 (6.0-28.6); CALCIUM 9.5 mg/dL (8.5-10.1); CARBON DIOXIDE 22 mmol/L (21-32); CHLORIDE 104 mmol/L (98-107); CREATININE, SERUM 0.86 mg/dL (0.55-1.02); GLOMERULAR FILTRATION RATE,EST 79 mL/min (>60); MAGNESIUM 2.2 mg/dL (1.8-2.4); POTASSIUM 3.8 mmol/L (3.5-5.1); PROTEIN, TOTAL 8.1 g/dL (6.4-8.2); UREA NITROGEN 15 mg/dL (7-18)
[2023-10-22] MEDS ORDERED: DICYCLOMINE HCL20 MG PO (16:08)
[2023-10-22] MEDS ORDERED: REGLAN10 MG PO (16:08)
[2023-10-22 16:59] VITALS: BP 111/71
== END 2023-10-22 17:00 | disposition home or self-care (01) ==
LOC: ED 14:43
PROVIDERS: Emergency Medicine
DX: G52.2 Disorders of vagus nerve (principal); R11.15 Cyclical vomiting syndrome unrelated to migraine; K31.84 Gastroparesis; F17.200 Nicotine dependence, unspecified, uncomplicated; Z88.5 Allergy status to narcotic agent; Z88.8 Allergy status to other drugs, medicaments and biological substances; Z79.899 Other long term (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
CPT/HCPCS: 36415; 71045; 80053; 83735; 84484; 85025; 93005; 93010; 96374; 96375; 99284-25; J1630; J1885

== ENCOUNTER 2024-07-05 17:40 | Emergency (ER) | payer OTHER ==
[~2024-07-05] VITALS: Ht 157.5 cm; Wt 64.1 kg
[~2024-07-05 17:40] MED LIST changes: +CEPHALEXIN500 MG PO; +DICYCLOMINE HCL20 MG PO; +METOCLOPRAMIDE10 MG PO; +PEG-3350 AND4000 ML PO
[2024-07-05] MEDS ORDERED: TRANSDERM-SCOP1 EACH (17:55)
[2024-07-05] MEDS ORDERED: SODIUM CHLORIDE 0.9% 1,000 ML IV ONE (18:00)
[2024-07-05] MEDS ORDERED: KETOROLAC TROMETHAMINE 30 MG/ML VIAL IV ONE (18:00)
[2024-07-05 18:13] LABS: BASOPHILS 0.7 % (0-2); EOSINOPHILS 1.9 % (0-6); HEMATOCRIT 39.7 % (35.0-50.0); HEMOGLOBIN 13.5 g/dL (12.0-18.0); LYMPHOCYTES 44.6 % (24-44); MONOCYTES 5.4 % (0-12); NEUTROPHILS 47.4 % (39-80); PLATELET COUNT 311 K/uL (140-440); RBC 4.36 M/ul (4.3-5.7)
[2024-07-05 18:28] LABS: ALBUMIN 3.7 g/dL (3.4-5.0); ALBUMIN/GLOBULIN RATIO 1.09 (1.1-2.4); ANION GAP 13.6 (7-21); BILIRUBIN, TOTAL 0.3 ng/dL (0.2-1.0); BUN/CREATININE RATIO 17.39 (6.0-28.6); CALCIUM 9.3 mg/dL (8.5-10.1); CREATININE, SERUM 0.92 mg/dL (0.55-1.02); POTASSIUM 3.6 mmol/L (3.5-5.1); PROTEIN, TOTAL 7.1 g/dL (6.4-8.2)
[2024-07-05 18:55] LABS: BILIRUBIN, URINE NEGATIVE (negative); BLOOD/HGB, URINE NEGATIVE (Negative); KETONE, URINE NEGATIVE (Negative); LEUK ESTERASE, URINE NEGATIVE (negative); NITRITE, URINE POSITIVE (negative); PH, URINE 5.5 (5-7)
[2024-07-05 19:12] LABS: EPITHELIAL CELLS, URINE SQUAMOUS 1+ /lpf (0-1+)
[2024-07-05 19:13] LABS: BACTERIA, URINE 2+ /hpf (negative); CASTS, URINE NONE SEEN \\lpf; COLLECTION TYPE, URINE CLEAN CATCH; CRYSTALS, URINE NONE SEEN (0-1+); REFLEX CULTURE, URINE Yes (No)
[2024-07-05] MEDS ORDERED: PYRIDIUM200 MG PO (19:55)
[2024-07-05] MEDS ORDERED: ONDANSETRON ODT8 MG PO (19:55)
[2024-07-05] MEDS ORDERED: CEFDINIR300 MG PO (19:55)
[2024-07-05] MEDS ORDERED: ONDANSETRON 4 MG HOME.PACK SL ONE (20:00)
[2024-07-05] MEDS ORDERED: CEFDINIR 300 MG HOME.PACK PO ONE (20:00)
[2024-07-05 20:08] VITALS: BP 110/74
== END 2024-07-05 20:09 | disposition home or self-care (01) ==
LOC: ED 17:40
PROVIDERS: Emergency Medicine
DX: N39.0 Urinary tract infection, site not specified (principal); F17.200 Nicotine dependence, unspecified, uncomplicated; Z88.5 Allergy status to narcotic agent; Z88.8 Allergy status to other drugs, medicaments and biological substances; Z79.899 Other long term (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
CPT/HCPCS: 36415; 74176; 80053; 81001; 85025; 87077; 87088; 87186; 96374; 99284-25; A9270; J1885; J7030

== ENCOUNTER 2024-07-19 12:43 | Emergency (ER) | payer OTHER ==
[~2024-07-19] VITALS: Ht 157.5 cm; Wt 65.0 kg
[~2024-07-19 12:43] MED LIST changes: +CEFDINIR300 MG PO; +PYRIDIUM200 MG PO; +TRANSDERM-SCOP1 EACH
[2024-07-19] MEDS ORDERED: HYDROmorphone HCL 1 MG/ML SYR IV ONE (13:15)
[2024-07-19] MEDS ORDERED: PANTOPRAZOLE SODIUM 40 MG/10 ML VIAL IV ONE (13:15)
[2024-07-19] MEDS ORDERED: ondansetron HCL 4 MG/2 ML VIAL IV ONE (13:15)
[2024-07-19 13:23] LABS: BASOPHILS 0.6 % (0-2); EOSINOPHILS 0.2 % (0-6); HEMATOCRIT 43.8 % (35.0-50.0); HEMOGLOBIN 14.6 g/dL (12.0-18.0); LYMPHOCYTES 19.9 % (24-44); MCH 30.7 (27-36); MCHC 33.5 g/dl (30-36); MCV 91.8 fl (81-99); MONOCYTES 3.5 % (0-12); NEUTROPHILS 75.8 % (39-80); PLATELET COUNT 353 K/uL (140-440); RBC 4.77 M/ul (4.3-5.7); RDW 14.1 (10.5-15.0)
[2024-07-19] MEDS ORDERED: SODIUM CHLORIDE 0.9% 1,000 ML IV PRN (13:30)
[2024-07-19 13:46] LABS: ALBUMIN 4.2 g/dL (3.4-5.0); ALBUMIN/GLOBULIN RATIO 1.14 (1.1-2.4); ANION GAP 18.7 (7-21); BILIRUBIN, TOTAL 0.5 ng/dL (0.2-1.0); BUN/CREATININE RATIO 15.46 (6.0-28.6); CALCIUM 9.6 mg/dL (8.5-10.1); CREATININE, SERUM 0.97 mg/dL (0.55-1.02); POTASSIUM 3.7 mmol/L (3.5-5.1); PROTEIN, TOTAL 7.9 g/dL (6.4-8.2)
[2024-07-19 14:20] LABS: INFLUENZA B NAA NEGATIVE (NEGATIVE); RESPIRATORY SYNCYTIAL VIR NAA NEGATIVE (NEGATIVE)
[2024-07-19] MEDS ORDERED: ONDANSETRON ODT4 MG PO (16:43)
[2024-07-19 16:46] VITALS: BP 102/71
--- NOTE | 2024-07-20 20:29 | EKG ---
[facility] [address] [facility] [place], [place] [address] Signed Normal sinus rhythm Normal ECG When compared with ECG of 27-MAR-2024 12:31, No significant change was found Confirmed by Favio Bergeron MD ([id number]) on 07/20/2024 8:28:58 PM Electronically Signed By: FAVIO BERGERON MD 07/20/242028 PATIENT NAME: TITI TANNER Electrocardiogram DATE OF : 69 PHYSICIAN: FAVIO BERGERON MD REPORT #: [id number] REPORT IS CONFIDENTIAL AND NOT TO BE RELEASED WITHOUT AUTHORIZATION
== END 2024-07-19 16:46 | disposition home or self-care (01) ==
LOC: ED 12:43
PROVIDERS: Emergency Medicine
DX: R11.2 Nausea with vomiting, unspecified (principal); R19.7 Diarrhea, unspecified; F17.200 Nicotine dependence, unspecified, uncomplicated; Z88.5 Allergy status to narcotic agent; Z88.8 Allergy status to other drugs, medicaments and biological substances; Z79.899 Other long term (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
CPT/HCPCS: 36415; 74177; 80053; 83690; 83880; 84484; 85025; 87502; 93005; 93010; 96375; 99284-25; J2405; J2470; J7030; Q9967; U0002

== ENCOUNTER 2025-02-17 08:38 | Emergency (ER) | payer OTHER ==
[~2025-02-17] VITALS: Ht 157.5 cm; Wt 69.2 kg
[2025-02-17] MEDS ORDERED: ondansetron HCL 4 MG/2 ML VIAL IV ONE (09:00)
[2025-02-17 09:08] LABS: BASOPHILS 0.6 % (0.1-1.2); EOSINOPHILS 0.7 % (0.7-5.8); HEMATOCRIT 40.3 % (34.1-44.9); HEMOGLOBIN 13.2 g/dL (11.2-15.7); LYMPHOCYTES 14.7 % (19.3-51.7); MCH 30.2 PG (25.6-32.2); MCHC 32.8 g/dL (32.2-35.5); MCV 92.2 fL (79.4-94.8); MONOCYTES 5.5 % (4.7-12.5); NEUTROPHILS 77.7 % (34.0-71.1); PLATELET COUNT 303 K/uL (182-369); RBC 4.37 M/uL (3.93-5.22)
[2025-02-17 09:29] LABS: ALBUMIN 3.8 g/dL (3.4-5.0); ALBUMIN/GLOBULIN RATIO 1.19 (1.1-2.4); ANION GAP 13.7 (7-21); BILIRUBIN, TOTAL 0.4 mg/dL (0.2-1.0); BUN/CREATININE RATIO 16.27 (6.0-28.6); CALCIUM 9.3 mg/dL (8.5-10.1); CREATININE, SERUM 0.86 mg/dL (0.55-1.02); MAGNESIUM 2.2 mg/dL (1.8-2.4); POTASSIUM 3.7 mmol/L (3.5-5.1)
[2025-02-17] MEDS ORDERED: METOCLOPRAMIDE HCL 10 MG/2 ML SDV IV ONE (09:45)
[2025-02-17] MEDS ORDERED: MIDAZOLAM HCL 2 MG/2 ML VIAL IV ONE (09:45)
[2025-02-17] MEDS ORDERED: KETOROLAC TROMETHAMINE 15 MG/ML VIAL IV ONE (09:45)
[2025-02-17] MEDS ORDERED: SODIUM CHLORIDE 0.9% 1,000 ML IV PRN (10:15)
[2025-02-17 11:53] VITALS: BP 154/99
== END 2025-02-17 11:55 | disposition home or self-care (01) ==
LOC: ED 08:38
PROVIDERS: Emergency Medicine
DX: K31.84 Gastroparesis (principal); F17.200 Nicotine dependence, unspecified, uncomplicated; Z88.8 Allergy status to other drugs, medicaments and biological substances; Z88.5 Allergy status to narcotic agent; Z79.899 Other long term (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
CPT/HCPCS: 80053; 83690; 83735; 85025; 96374; 96375; 99284-25; J1885; J2250; J2405; J2765; J7030

== ENCOUNTER 2025-03-22 17:06 | Emergency (ER) | payer OTHER ==
[~2025-03-22] VITALS: Ht 157.5 cm; Wt 69.2 kg
[2025-03-22] MEDS ORDERED: ondansetron HCL 4 MG/2 ML VIAL IV ONE (18:45)
[2025-03-22 19:35] LABS: BASOPHILS 0.5 % (0.1-1.2); EOSINOPHILS 0.5 % (0.7-5.8); HEMATOCRIT 44.1 % (34.1-44.9); HEMOGLOBIN 14.3 g/dL (11.2-15.7); LYMPHOCYTES 12.7 % (19.3-51.7); MCHC 32.4 g/dL (32.2-35.5); MCV 92.5 fL (79.4-94.8); MONOCYTES 4.8 % (4.7-12.5); NEUTROPHILS 80.4 % (34.0-71.1); PLATELET COUNT 344 K/uL (182-369); RBC 4.77 M/uL (3.93-5.22)
[2025-03-22] MEDS ORDERED: droPERidol 5 MG/2 ML VIAL IV ONE (19:45)
[2025-03-22] MEDS ORDERED: HYDROmorphone HCL 1 MG/ML SYR IV PRN (19:45)
[2025-03-22 19:50] LABS: ALBUMIN 4.3 g/dL (3.4-5.0); ALBUMIN/GLOBULIN RATIO 1.16 (1.1-2.4); ANION GAP 19.2 (7-21); BILIRUBIN, TOTAL 0.8 mg/dL (0.2-1.0); BUN/CREATININE RATIO 20.35 (6.0-28.6); CALCIUM 10.2 mg/dL (8.5-10.1); CREATININE, SERUM 1.13 mg/dL (0.55-1.02); POTASSIUM 4.2 mmol/L (3.5-5.1)
[2025-03-22 21:35] VITALS: BP 132/76
[2025-03-22] MEDS ORDERED: PROMETHAZINE HCL 25 MG HOME.PACK PO ONE (21:45)
[2025-03-22] MEDS ORDERED: AMOXICILLIN/CLAVULANATE K 875 MG HOME.PACK PO ONE (21:45)
[2025-03-22] MEDS ORDERED: HYDROCODONE BIT/ACETAMINOPHEN 5/325 MG 1 TAB HOME.PACK PO ONE (21:45)
[2025-03-22] MEDS ORDERED: methylPREDNISolone 4 MG HOME.PACK PO ONE (21:45)
[2025-03-22] MEDS ORDERED: AMOX TR-K CLV1 EAC1 PO (21:46)
== END 2025-03-22 21:35 | disposition home or self-care (01) ==
LOC: ED 17:06
PROVIDERS: Emergency Medicine
DX: K52.9 Noninfective gastroenteritis and colitis, unspecified (principal); F17.200 Nicotine dependence, unspecified, uncomplicated; Z88.5 Allergy status to narcotic agent; Z88.8 Allergy status to other drugs, medicaments and biological substances
CPT/HCPCS: 74177; 80053; 83690; 83735; 85025; 96375; 99284-25; J1171; J1790; J2405; Q9967

== ENCOUNTER 2025-03-25 15:00 | Emergency (ER) | payer OTHER ==
[~2025-03-25] VITALS: Ht 157.5 cm; Wt 69.2 kg
[~2025-03-25 15:00] MED LIST changes: +AMOX TR-K CLV1 EAC1 PO
[2025-03-25 15:30] LABS: BASOPHILS 0.6 % (0.1-1.2); EOSINOPHILS 0.4 % (0.7-5.8); HEMATOCRIT 45.1 % (34.1-44.9); HEMOGLOBIN 15.2 g/dL (11.2-15.7); LYMPHOCYTES 28.8 % (19.3-51.7); MCH 30.6 PG (25.6-32.2); MCHC 33.7 g/dL (32.2-35.5); MCV 90.7 fL (79.4-94.8); MONOCYTES 4.5 % (4.7-12.5); NEUTROPHILS 65.3 % (34.0-71.1); PLATELET COUNT 343 K/uL (182-369); RBC 4.97 M/uL (3.93-5.22)
[2025-03-25] MEDS ORDERED: ondansetron HCL 4 MG/2 ML VIAL IV ONE ×2 (15:30→16:45)
[2025-03-25] MEDS ORDERED: SODIUM CHLORIDE 0.9% 500 ML IV ONE (15:30)
[2025-03-25 15:41] LABS: ALBUMIN 4.5 g/dL (3.4-5.0); ALBUMIN/GLOBULIN RATIO 1.15 (1.1-2.4); ANION GAP 18.5 (7-21); BILIRUBIN, TOTAL 1.1 mg/dL (0.2-1.0); BUN/CREATININE RATIO 32.67 (6.0-28.6); CALCIUM 9.9 mg/dL (8.5-10.1); CREATININE, SERUM 1.01 mg/dL (0.55-1.02); MAGNESIUM 2.2 mg/dL (1.8-2.4); POTASSIUM 3.5 mmol/L (3.5-5.1); PROTEIN, TOTAL 8.4 g/dL (6.4-8.2)
[2025-03-25] MEDS ORDERED: SODIUM CHLORIDE 0.9% 1,000 ML IV PRN (16:45)
[2025-03-25 17:15] VITALS: BP 115/76
== END 2025-03-25 17:17 | disposition home or self-care (01) ==
LOC: ED 15:00
PROVIDERS: Emergency Medicine
DX: R11.2 Nausea with vomiting, unspecified (principal); F17.200 Nicotine dependence, unspecified, uncomplicated; Z79.899 Other long term (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; Z88.5 Allergy status to narcotic agent
CPT/HCPCS: 36415; 80053; 83735; 85025; 96374; 99284-25; J2405; J7040

== ENCOUNTER 2025-05-25 15:22 | Emergency (ER) | payer OTHER ==
[~2025-05-25] VITALS: Ht 157.5 cm; Wt 67.0 kg
[2025-05-25 15:50] LABS: BASOPHILS 0.3 % (0.1-1.2); EOSINOPHILS 0 % (0.7-5.8); LYMPHOCYTES 17.6 % (19.3-51.7); MCH 30.1 PG (25.6-32.2); MCHC 34.1 g/dL (32.2-35.5); MCV 88.3 fL (79.4-94.8); MONOCYTES 5.3 % (4.7-12.5); NEUTROPHILS 75.8 % (34.0-71.1); RBC 4.72 M/uL (3.93-5.22)
[2025-05-25] MEDS ORDERED: SODIUM CHLORIDE 0.9% 1,000 ML IV PRN (16:00)
[2025-05-25 16:05] LABS: ALT (SGPT) 30.0 U/L (14-59); AST (SGOT) 17.0 U/L (15-37); GLOMERULAR FILTRATION RATE,EST 65.0 mL/min (>60); PROTEIN, TOTAL 8.7 g/dL (6.4-8.2); UREA NITROGEN 21.0 mg/dL (7-18)
[2025-05-25] MEDS ORDERED: ONDANSETRON ODT4 MG PO (17:36)
[2025-05-25 17:48] VITALS: BP 106/66
== END 2025-05-25 17:48 | disposition home or self-care (01) ==
LOC: ED 15:22
PROVIDERS: Emergency Medicine
DX: R10.9 Unspecified abdominal pain (principal); R11.2 Nausea with vomiting, unspecified; F17.200 Nicotine dependence, unspecified, uncomplicated; Z88.5 Allergy status to narcotic agent; Z88.8 Allergy status to other drugs, medicaments and biological substances; Z79.899 Other long term (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
CPT/HCPCS: 36415; 80053; 83735; 85025; 96361; 96374; 96375; 99284-25; J1790; J2405; J7030